=== PATIENT | female | born 1985 | race Caucasian/White ===

== ENCOUNTER 2016-11-22 09:18 | Inpatient (IN) | payer MEDICAID, OTHER ==
[~2016-11-22] VITALS: Ht 165.1 cm; Wt 72.4 kg
[2016-11-22] MEDS ORDERED: SOD CHLORIDE 0.9% 1,000 ML IV STA (09:44)
[2016-11-22] MEDS ORDERED: METOCLOPRAMIDE 10 MG INJ IV STA (09:44)
[2016-11-22] MEDS ORDERED: SOD CHLORIDE 0.9% 1,000 ML IV ONE ×2 (10:00→14:30)
[2016-11-22] MEDS ORDERED: DIPHENHYDRAMINE 50 MG INJ IV ONE (10:00)
[2016-11-22 10:15] LABS: ADD SCAN DIFF NO
[2016-11-22 10:19] LABS: ADD UMIC YES; URINE BILIRUBIN (Dip) 1+ (NEGATIVE); URINE BLOOD (Dip) TRACE (NEGATIVE); URINE COLOR YELLOW (YELLOW); URINE GLUCOSE (Dip) NEGATIVE (NEGATIVE); URINE KETONES (Dip) 3+ (NEGATIVE); URINE LEUKOCYTE ESTERASE (Dip) NEGATIVE (NEGATIVE); URINE NITRITE (Dip) NEGATIVE (NEGATIVE); URINE TOTAL PROTEIN (Dip) 2+ (NEGATIVE); URINE UROBILINOGEN (Dip) 1.0 E.U./dL (0.1-1.0)
--- NOTE | 2016-11-22 10:26 | ERD ---
ER Documentation Chief Complaint Date/Time DATE: 11/22/16 TIME: 10:24 Chief Complaint n/v 13 wks preg HPI 31-year-old female who is 2 approximately 13 weeks comes in with 3 days of nausea vomiting. Patient states that she has had multiple episodes of nonbloody nonbilious emesis associated with nausea. She states that she has had OB care at an outside facility, her last ultrasound was 2 weeks ago and she reports it has been normal. She has not had any pelvic pain or vaginal bleeding. She denies fevers, chills. ROS All systems reviewed and are negative except as per history of present illness. PMhx/Soc Medical and Surgical Hx: pt denies Medical Hx, pt denies Surgical Hx Hx Alcohol Use: No Hx Substance Use: No Hx Tobacco Use: No Smoking Status: Never smoker Physical Exam Vitals Vital Signs Date Time Temp Pulse Resp B/P Pulse Ox O2 Delivery O2 Flow Rate FiO2 11/22/16 14:21 65 18 108/66 99 Room Air 11/22/16 09:30 97.8 83 20 121/70 99 Physical Exam General: Well-developed, well-nourished. The patient appears in no acute distress. HEENT: Head is normocephalic, atraumatic. No scleral icterus. Pupils are equal , round, and reactive. Oral mucous membranes are moist. No pharyngeal erythema. Neck: Supple. Nontender. Lungs: Clear to auscultation. Normal air movement. Heart: Regular rate and rhythm. S1 and S2 are normal. No murmurs, gallops, or rubs. Abdomen: Soft, nontender, nondistended. Bowel sounds are normoactive. Extremities: No clubbing or cyanosis. Normal pulses. Moving extremities x 4. No weakness. Neurologic: Alert and oriented 3. No focal deficits. Skin: Normal turgor. No rash or lesions. Result Diagram: 11/22/16 0956 11/22/16 1500 Results 24 hrs Laboratory Tests Test 11/22/16 09:56 11/22/16 15:00 White Blood Count 25.910^3/ul Red Blood Count 4.4810^6/ul Hemoglobin 14.4g/dl Hematocrit 38.1% Mean Corpuscular Volume 85.0fl Mean Corpuscular Hemoglobin 32.1pg Mean Corpuscular Hemoglobin Concent 37.8g/dl Red Cell Distribution Width 12.1% Platelet Count 51348^3/UL Mean Platelet Volume 10.7fl Neutrophils % 88.0% Band Neutrophils % 1.0% Lymphocytes % 8.0% Monocytes % 3.0% Neutrophils # 22.810^3/ul Lymphocytes # 2.110^3/ul Monocytes # 0.810^3/ul Platelet Estimate PLT APPEAR ADEQUATE Urine Color YELLOW Urine Clarity HAZY Urine pH 6.0 Urine Specific [place] >=1.030 Urine Ketones 3+ Urine Nitrite NEGATIVE Urine Bilirubin 1+ Urine Ictotest NEGATIVE Urine Urobilinogen 1.0 E.U./dL Urine Leukocyte Esterase NEGATIVE Urine Microscopic RBC 0-2/HPF Urine Microscopic WBC 2-5/HPF Urine Squamous Epithelial Cells MODERATE Urine Bacteria MODERATE Urine Mucus MODERATE Urine Hemoglobin TRACE Urine Glucose NEGATIVE% Urine Total Protein 2+ Sodium Level 134mmol/L 135mmol/L Potassium Level 2.7mmol/L 3.2mmol/L Chloride Level 95mmol/L 100mmol/L Carbon Dioxide Level 20mmol/L 23mmol/L Anion Gap 22 15 Blood Urea Nitrogen 20mg/dl 14mg/dl Creatinine 0.69mg/dl 0.57mg/dl Glucose Level 130mg/dl 95mg/dl Calcium Level 10.0mg/dl 8.8mg/dl Total Bilirubin 0.8mg/dl Direct Bilirubin 0.00mg/dl Indirect Bilirubin 0.8mg/dl Aspartate Amino Transf (AST/SGOT) 27IU/L Alanine Aminotransferase (ALT/SGPT) 38IU/L Alkaline Phosphatase 73IU/L Total Protein 8.3g/dl Albumin 5.1g/dl Globulin 3.20g/dl Albumin/Globulin Ratio 1.59 Lipase 90U/L Beta HCG, Quantitative 746027.0mIU/ml Current Medications Medications (Trade) Dose Ordered Sig/Masood Route PRN Reason Start Time Stop Time Status Last Admin Dose Admin Sodium Chloride (NS) 1,000 ml @ 1,000 mls/hr Q1H STAT IV 11/22/16 09:44 11/22/16 10:43 DC 11/22/16 09:59 Metoclopramide HCl 10 mg 10 mg ONCE STAT IV 11/22/16 09:44 11/22/16 09:47 DC 11/22/16 09:59 Sodium Chloride (NS) 1,000 ml @ 1,000 mls/hr Q1H ONCE IV 11/22/16 10:00 11/22/16 10:59 DC 11/22/16 09:59 Diphenhydramine HCl (Benadryl) 25 mg ONCE ONCE IV 11/22/16 10:00 11/22/16 10:01 DC 11/22/16 09:59 Potassium Chloride 60 meq 60 meq ONCE STAT PO 11/22/16 11:31 11/22/16 11:33 DC 11/22/16 11:48 Potassium Chloride 20 meq/ Sodium Chloride 110 ml @ 55 mls/hr ONCE ONCE IVPB 11/22/16 12:00 11/22/16 13:59 DC 11/22/16 12:14 Magnesium Sulfate/ Dextrose (Magnesium Sulfate 1 Gm/D5W) 100 ml @ 100 mls/hr ONCE ONCE IVPB 11/22/16 12:00 11/22/16 12:59 DC 11/22/16 11:48 Ondansetron HCl (Zofran Inj) 4 mg ONCE STAT IV 11/22/16 11:59 11/22/16 12:00 DC 11/22/16 12:11 Ondansetron HCl 4 mg 4 mg ONCE STAT IV 11/22/16 14:09 11/22/16 14:10 DC 11/22/16 14:15 Sodium Chloride (NS) 1,000 ml @ 1,000 mls/hr Q1H ONCE IV 11/22/16 14:30 11/22/16 15:29 DC 11/22/16 14:15 Dextrose/Sodium Chloride (D5-1/2ns) 500 ml ONCE ONCE IV 11/22/16 15:30 11/22/16 15:31 DC PROCEDURE: US Abdomen (right upper quadrant). CLINICAL INDICATION: 31-year-old female. Right upper quadrant pain nausea and vomiting. TECHNIQUE: Multiple real-time longitudinal and transverse images of the right upper quadrant of the abdomen were acquired utilizing a curved array transducer. Images were reviewed on a high-resolution PACS workstation. COMPARISON: None FINDINGS: The liver is normal in size and echogenicity without focal mass or intrahepatic biliary dilatation. The gallbladder is normal. The common bile duct measures 5.9 mm in maximal dimension. The visualized portions of the pancreas are unremarkable with obscuration of the tail of the pancreas. No free fluid is identified. The right kidney measures 10.6 cm in length. There is no evidence of obstructive uropathy or urolithiasis. No renal masses seen. Visualized portions aorta and inferior vena cava are normal. IMPRESSION: 1. Unremarkable right upper quadrant ultrasound. RPTAT: QQ .Jarrod Krueger MD, MD Date Time Electronically viewed and signed by .Jarrod Krueger MD, on 11/22/2016 15:01 .L/ CC: JOSE ENRIQUE PIMENTEL PA-C PROCEDURE: US OB. CLINICAL INDICATION: Hyper emesis.. TECHNIQUE: Multiple sonographic images of the pelvis were obtained. Transabdominal and transvaginal views of the pelvis are available for review. The images were reviewed on a PACS workstation. COMPARISON: No prior studies are available for comparison. FINDINGS: The uterus measures 9.2 x 9.0 x 10.4 cm. Intrauterine is identified. The crown-rump length equals 6.5 cm which corresponds to 12 weeks 6 days gestational age by ultrasound criteria. Gestational sac size is 5.4 cm corresponding to 11 weeks 6 days. cardiac activity is 176 beats per minute. No subchorionic hemorrhage is identified. The adnexa are unremarkable. There is no free fluid. Right ovary measures 3.1 cm. Left ovary measures up to 0.6 cm. Ovaries are normal in size shape and flow. IMPRESSION: 1. Single viable intrauterine gestation of approximately 12-week 6 days by crown-rump length.. RPTAT: QQ .Jarrod Krueger MD, MD Date Time Electronically viewed and signed by .Jarrod Krueger MD, on 11/22/2016 10:44 Procedures/MDM ED course: Patient had an IV line established, blood and urine were obtained. She was given 2 L of normal saline IV, Benadryl 25 mg and Reglan 10 mg IV. She was feeling better at this time, labs showed hyperkalemia with a potassium of 2.7. She was given Zofran additionally 4 mg IV to control her nausea. She was given potassium 60 mEq by mouth, 20 mEq IV as well as magnesium 1 g IV. Patient was reassessed, she states that she was still feeling nauseous and she was given an additional Zofran 4 mg IV, as well as D5w 1/2 NS. At this point, she is dehydrated, was not able to tolerate oral potassium and continues to have emesis in the emergency room. I discussed this with my attending physician Dr Logan, who agrees. I called Dr. Olvera who is her OB who is believe that patient can safely be admitted to [facility]. 12-lead EKG(interpreted by supervising physician): Dr. Singletary Rate/Rhythm: Sinus bradycardia rate of 55 QRS, ST, T-waves: No changes consistent w/ acute ischemia, no intervals, no dysrhythmias, no ectopy Impression: No evidence of ischemia or arrhythmia MDM: 31-year-old female comes in with hyperemesis, subsequently developed hypokalemia and dehydration. In terms of the patient's , she has a single live intrauterine at 12 weeks and 6 days. She does not present with any pelvic pain, vaginal bleeding, she is hemodynamically stable. Patient at this time continues to have nausea, vomiting, she has hypokalemia on her lab work with a potassium of 2.7 and ketonuria. Patient was found to have leukocytosis of 27,000, likely due to dehydration and nausea, vomiting, she does not have any fever and suspicion for sepsis is low. Gallbladder ultrasound was also done and there is no evidence of gallstones or acute cholecystitis. Urine does not show evidence of infection. Suspicion for an infectious origin for this is low. She was not able to completely tolerate the oral potassium here and had 1 episode of vomiting once in the ED, therefore, I believe that the patient can further benefit from hospital admission and IV fluids and rehydration. I have notified her OB who is Dr. Olvera. We are awaiting admission at this time, hospitalist has been notified. I spoke with my attending physician Dr Logan, who also agrees the patient would benefit from hospital admission at this time. Patient was notified throughout the course of all her lab findings interventions , and medications. Departure Diagnosis: Primary Impression: Hyperemesis gravidarum Additional Impressions: Hypokalemia Dehydration Condition: JOSE ENRIQUE Carrion PA-C Nov 22, 2016 10:26
[2016-11-22 10:27] LABS: ICTOTEST NEGATIVE (NEGATIVE)
[2016-11-22 10:37] LABS: URINE RBCS 0-2 /HPF (0)
[2016-11-22 10:38] LABS: ALBUMIN 5.1 g/dl (3.3-4.9); ALBUMIN/GLOBULIN RATIO 1.59; BILIRUBIN,INDIRECT 0.8 mg/dl (0-1.1); BILIRUBIN,TOTAL 0.8 mg/dl (0.2-1.3); CREATININE 0.69 mg/dl (0.44-1.00); SQUAMOUS EPITHELIAL CELL,UR MODERATE; TOTAL PROTEIN 8.3 g/dl (6.1-8.1)
[2016-11-22 10:39] LABS: BACTERIA,URINE MODERATE; MUCUS,URINE MODERATE
--- NOTE | 2016-11-22 10:44 | RADRPT ---
PROCEDURE: US OB. CLINICAL INDICATION: Hyper emesis.. TECHNIQUE: Multiple sonographic images of the pelvis were obtained. Transabdominal and transvagin al views of the pelvis are available for review. The images were reviewed on a PACS workstation. COMPARISON: No prior studies are available for comparison. FINDINGS: The uterus measures 9.2 x 9.0 x 10.4 cm. Intrauterine is identified. The crown-rump yesenia th equals 6.5 cm which corresponds to 12 weeks 6 days gestational age by ultrasound criteria. Gesta tional sac size is 5.4 cm corresponding to 11 weeks 6 days. cardiac activity is 176 beats per minute. No subchorionic hemorrhage is identified. The adnexa are unremarkable. There is no free f luid. Right ovary measures 3.1 cm. Left ovary measures up to 0.6 cm. Ovaries are normal in size sh ape and flow. IMPRESSION: 1. Single viable intrauterine gestation of approximately 12-week 6 days by crown-rump length.. RPTAT: QQ .Jarrod Krueger MD, MD Date Time Electronically viewed and signed by .Jarrod Krueger MD, on 11/22/2016 10:44 .L/
[2016-11-22 11:12] LABS: POTASSIUM 2.7 mmol/L (3.5-5.1)
[2016-11-22] MEDS ORDERED: POTASSIUM CHLORIDE (SR) 20 MEQ TAB PO STA (11:31)
[2016-11-22 11:54] LABS: ABNORMAL IP MESSAGE 1; HEMATOCRIT 38.1 % (37.0-47.0); HEMOGLOBIN 14.4 g/dl (12.0-16.0); MEAN CORPUSCULAR HEMOGLOBIN 32.1 pg (29.0-33.0); MEAN PLATELET VOLUME 10.7 fl (7.4-10.4); PLATELET COUNT 388 10^3/UL (140-415); RED BLOOD COUNT 4.48 10^6/ul (4.20-5.40); RED CELL DISTRIBUTION WIDTH 12.1 % (11.5-14.5); WHITE BLOOD COUNT 25.9 10^3/ul (4.8-10.8)
[2016-11-22] MEDS ORDERED: ONDANSETRON 4 MG INJ IV STA ×3 (11:59→20:53)
[2016-11-22] MEDS ORDERED: POTASSIUM CHLORIDE 20 MEQ in SOD CHLORIDE 0.9% 100 ML IVPB ONE (12:00)
[2016-11-22] MEDS ORDERED: MAGNESIUM SULFATE 1 GM/D5W 100 ML IVPB ONE (12:00)
[2016-11-22 12:45] LABS: MEAN CORPUSCULAR HGB CONC 37.8 g/dl (32.0-37.0)
[2016-11-22 13:32] LABS: LYMPHOCYTES # 2.1 10^3/ul (0.8-2.9); MONOCYTE # 0.8 10^3/ul (0.3-0.9); NEUTROPHIL # 22.8 10^3/ul (1.6-7.5)
[2016-11-22 13:33] LABS: PLATELET ESTIMATE PLT APPEAR ADEQUATE
--- NOTE | 2016-11-22 15:01 | RADRPT ---
PROCEDURE: US Abdomen (right upper quadrant). CLINICAL INDICATION: 31-year-old female. Right upper quadrant pain nausea and vomiting. TECHNIQUE: Multiple real-time longitudinal and transverse images of the right upper quadrant of th e abdomen were acquired utilizing a curved array transducer. Images were reviewed on a high-resoluti on PACS workstation. COMPARISON: None FINDINGS: The liver is normal in size and echogenicity without focal mass or intrahepatic biliary dilatation. The gallbladder is normal. The common bile duct measures 5.9 mm in maximal dimension. The visuali zed portions of the pancreas are unremarkable with obscuration of the tail of the pancreas. No free fluid is identified. The right kidney measures 10.6 cm in length. There is no evidence of obstructive uropathy or urolith iasis. No renal masses seen. Visualized portions aorta and inferior vena cava are normal. IMPRESSION: 1. Unremarkable right upper quadrant ultrasound. RPTAT: QQ .Jarrod Krueger MD, MD Date Time Electronically viewed and signed by .Jarrod Krueger MD, on 11/22/2016 15:01 .L/
[2016-11-22] MEDS ORDERED: DEXTROSE 5%-0.45% NACL 500 ML BAG IV ONE (15:30)
[2016-11-22 15:37] LABS: CALCIUM 8.8 mg/dl (8.4-10.2); CREATININE 0.57 mg/dl (0.44-1.00); POTASSIUM 3.2 mmol/L (3.5-5.1)
--- NOTE | 2016-11-22 16:18 | EN ---
Date/Time of Note Date/Time of Note DATE: 11/22/16 TIME: 16:17 ER Progress Note Patient to be admitted to the [facility]LE SET[facility]PRENT[facility] service. Dr. Cazares talked to Dr. Morrison who will admit. Please see PA documentation. JORI CERVANTES MD Nov 22, 2016 16:18
[2016-11-22] MEDS ORDERED: ONDANSETRON 4 MG INJ IV PRN (16:30)
[2016-11-22] MEDS ORDERED: ACETAMINOPHEN 325 MG TAB PO PRN (16:30)
[2016-11-22 18:43] VITALS: TEMP 98
[2016-11-22 19:45] VITALS: BP 111/69; PULSE 73; RESP 20
[2016-11-22 21:02] VITALS: Ht 165.1 cm; Wt 72.4 kg
[2016-11-22] MEDS ORDERED: DEXTROSE 5%-LR 1,000 ML IV SCH (23:00)
[2016-11-22] MEDS ORDERED: PYRIDOXINE 100 MG INJ IM ONE (23:30)
[2016-11-22] MEDS ORDERED: POTASSIUM CHLORIDE IV SCH (23:30)
[2016-11-22] MEDS ORDERED: DIPHENHYDRAMINE 50 MG INJ IM ONE (23:30)
[2016-11-22] MEDS ORDERED: [UNRECOGNIZED DRUG - OTHER] IV SCH (23:30)
[2016-11-22] MEDS ORDERED: DEXTROSE 5% IV SCH (23:30)
--- NOTE | 2016-11-22 23:57 | HP ---
Date/Time of Note Date/Time of Note DATE: 11/22/16 TIME: 23:49 OB - History Hx of Present Free Text/Dictation 31 y.o. A1 with an IUP at 13 weeks with severe hyperemesis since early and this is her first admission for same.Pt was in the ER x 12 hours attempting hydration and antiemetics but was not able to be discharged so was admitted by Dr Olvera. Pt reports she has been taking Diclegis for the last week 2 qHS and then 1 in AM and one in the afternoon but that it hasn't helped. No bleeding. PMHx: none. PSHx: Knee surgery. Pilonidal cyst removed from her tailbone. NKDA. : 2 Para: 0 Spontaneous : 1 Care: Good Care Ultrasounds: Other (US in the ER today c/w 12w 6d) Obstetrical Complications: Hyperemesis Past Family/Social History * Past Medical, Surgical, Family and Obstetric Histories reviewed with pt as her records are not available. Blood Type: Unknown Rubella: unknown RPR/VDRL: Unknown GBS Status: Unknown HBsAG: Unknown OB Admission Exam Vital Signs Vital Signs Vital Signs Date Time Temp Pulse Resp B/P Pulse Ox O2 Delivery O2 Flow Rate FiO2 11/22/16 18:43 98.0 80 18 119/70 100 Room Air Physical Exam HEENT: WNL Heart: Rhythm Normal Lungs: Clear Abdomen: WNL Extremities: Normal Reflexes: Normal Heart Rate: 140's Last 72 hours Lab Results CBC & BMP 11/22/16 09:56 11/22/16 15:00 Liver Function Test 11/22/16 09:56 Alanine Aminotransferase (ALT/SGPT) 38 Albumin 5.1 H Alkaline Phosphatase 73 Aspartate Amino Transf (AST/SGOT) 27 Direct Bilirubin 0.00 Total Protein 8.3 H Magnesium Level Test 11/22/16 15:00 Magnesium Level 2.0 OB Assessment/Plan Other Assessment: Hyperemesis gravidarum. Other plan: IV hydration with continued potassium replacement. Benadryl 50mg IV to help with the vomiting and to help the pt sleep as she is very tired. Zofran 4 mg IV q 6 hours. Clear liquids only, for now. Pyridoxine 100 IM x 1. BENJI RODRÍGUEZ MD Nov 22, 2016 23:57
[2016-11-23] MEDS ORDERED: DIPHENHYDRAMINE 50 MG INJ IV ONE
[2016-11-23] MEDS: ONDANSETRON INJ 8 MG in SOD CHLORIDE 0.9% 50 ML IV PRN ×3 (00:48→22:42)
[2016-11-23] MEDS: POTASSIUM CHLORIDE IV SCH ×4 (00:54→20:12)
[2016-11-23] MEDS: [UNRECOGNIZED DRUG - OTHER] IV SCH ×4 (00:54→20:12)
[2016-11-23] MEDS: DEXTROSE 5% IV SCH ×4 (00:54→20:12)
[2016-11-23] MEDS ORDERED: VITAMIN A & D 5 GM OINT PACKET TOP ONE (00:56)
[2016-11-23] MEDS: ONDANSETRON 4 MG INJ IV PRN ×3 (03:00→17:44)
[2016-11-23 06:40] LABS: CALCIUM 8.4 mg/dl (8.4-10.2); CREATININE 0.55 mg/dl (0.44-1.00)
[2016-11-23 08:07] VITALS: BP 94/50; RESP 18
[2016-11-23] MEDS: PYRIDOXINE 50 MG TAB PO SCH (10:01)
--- NOTE | 2016-11-23 12:47 | QN ---
Documentation Comment patient seen and evaluated complains of n/v with epigastric pain vs stable afebrile abd soft , mild epigastric tenderness extremity no edema no calft a/ iup at 13 wks hyperemesis gravidarum p/ k supplement pepcid npo continue antiemetic ILDA BROWN MD Nov 23, 2016 12:47
[2016-11-23] MEDS: FAMOTIDINE 20 MG INJ IV SCH ×2 (12:55→20:05)
[2016-11-23] MEDS ORDERED: ACETAMINOPHEN 325 MG TAB PO PRN (13:00)
[2016-11-23 19:50] VITALS: BP 119/59; RESP 18
[2016-11-24] MEDS: ONDANSETRON 4 MG INJ IV PRN ×2 (04:14→11:09)
[2016-11-24] MEDS: [UNRECOGNIZED DRUG - OTHER] IV SCH ×2 (06:01→18:41)
[2016-11-24] MEDS: POTASSIUM CHLORIDE IV SCH ×2 (06:01→18:41)
[2016-11-24] MEDS: DEXTROSE 5% IV SCH ×2 (06:01→18:41)
[2016-11-24 08:02] VITALS: BP 115/69; RESP 16
[2016-11-24] MEDS: PYRIDOXINE 50 MG TAB PO SCH (09:39)
[2016-11-24] MEDS: FAMOTIDINE 20 MG INJ IV SCH ×2 (09:39→20:24)
[2016-11-24] MEDS: ONDANSETRON INJ 8 MG in SOD CHLORIDE 0.9% 50 ML IV PRN ×2 (13:13→22:26)
--- NOTE | 2016-11-24 13:55 | QN ---
Documentation Comment patient seen and evaluated complains of n/v with vs stable afebrile abd soft , nt, no epigastric tenderss extremity no edema no calft a/ iup at 13 wks hyperemesis gravidarum continue to have n/v p/ order cbc, cmp, amylase, lipase nutrition consult ordered ILDA BROWN MD Nov 24, 2016 13:55
[2016-11-24 15:01] LABS: ADD SCAN DIFF NO
[2016-11-24 15:02] LABS: BASOPHILS % 0.2 % (0.0-2.0); EOSINOPHILS % 0.3 % (0.0-7.0); HEMATOCRIT 32.9 % (37.0-47.0); HEMOGLOBIN 11.9 g/dl (12.0-16.0); LYMPHOCYTES # 2.2 10^3/ul (0.8-2.9); LYMPHOCYTES % 14.9 % (15.0-51.0); MEAN CORPUSCULAR HEMOGLOBIN 31.9 pg (29.0-33.0); MEAN CORPUSCULAR HGB CONC 36.2 g/dl (32.0-37.0); MEAN CORPUSCULAR VOLUME 88.2 fl (82.0-101.0); MEAN PLATELET VOLUME 10.3 fl (7.4-10.4); MONOCYTE # 0.9 10^3/ul (0.3-0.9); MONOCYTES % 5.8 % (0.0-11.0); NEUTROPHIL # 11.6 10^3/ul (1.6-7.5); NEUTROPHILS % 78.1 % (39.0-77.0); PLATELET COUNT 269 10^3/UL (140-415); RED BLOOD COUNT 3.73 10^6/ul (4.20-5.40); RED CELL DISTRIBUTION WIDTH 12.2 % (11.5-14.5); WHITE BLOOD COUNT 14.9 10^3/ul (4.8-10.8)
[2016-11-24 15:24] LABS: ALBUMIN 4.1 g/dl (3.3-4.9); ALBUMIN/GLOBULIN RATIO 1.7; BILIRUBIN,INDIRECT 0.5 mg/dl (0-1.1); BILIRUBIN,TOTAL 0.5 mg/dl (0.2-1.3); CALCIUM 8.8 mg/dl (8.4-10.2); CREATININE 0.51 mg/dl (0.44-1.00); POTASSIUM 3.8 mmol/L (3.5-5.1); TOTAL PROTEIN 6.5 g/dl (6.1-8.1)
[2016-11-24 19:43] VITALS: BP 109/59; RESP 20
[2016-11-25] MEDS: ONDANSETRON 4 MG INJ IV PRN (02:50)
[2016-11-25] MEDS: POTASSIUM CHLORIDE IV SCH ×3 (03:08→23:12)
[2016-11-25] MEDS: DEXTROSE 5% IV SCH ×3 (03:08→23:12)
[2016-11-25] MEDS: [UNRECOGNIZED DRUG - OTHER] IV SCH ×3 (03:08→23:12)
[2016-11-25 08:00] VITALS: BP 110/67; RESP 18
[2016-11-25] MEDS: FAMOTIDINE 20 MG INJ IV SCH ×2 (09:01→21:32)
[2016-11-25] MEDS: PYRIDOXINE 50 MG TAB PO SCH (09:01)
--- NOTE | 2016-11-25 12:59 | QN ---
Documentation Comment patient seen and evaluated decrease nausea no vomiting vs stable afebrile abd soft , nt, no epigastric tenderness extremity no edema no calf a/ iup at 13 wks improving symptoms hyperemesis gravidarum p/ advance to clear liquids ILDA BROWN MD Nov 25, 2016 12:59
[2016-11-25 20:51] VITALS: BP 101/57; RESP 18
[2016-11-26 07:45] VITALS: BP 104/64; RESP 17
[2016-11-26] MEDS: FAMOTIDINE 20 MG INJ IV SCH ×2 (08:43→21:16)
[2016-11-26] MEDS: DEXTROSE 5% IV SCH ×3 (08:43→18:20)
[2016-11-26] MEDS: [UNRECOGNIZED DRUG - OTHER] IV SCH ×3 (08:43→18:20)
[2016-11-26] MEDS: POTASSIUM CHLORIDE IV SCH ×3 (08:43→18:20)
[2016-11-26] MEDS: PYRIDOXINE 50 MG TAB PO SCH (08:43)
--- NOTE | 2016-11-26 13:16 | QN ---
Documentation Comment patient seen and evaluated no n/v vs stable afebrile abd soft , nt, no epigastric tenderness extremity no edema no calf a/ iup at 13 wks improving symptoms hyperemesis gravidarum tolerating clear diet p/ advance diet as tolerated consider d/c tomorrow if toleration diet ILDA BROWN MD Nov 26, 2016 13:16
[2016-11-26] MEDS: ONDANSETRON 4 MG INJ IV PRN (19:19)
[2016-11-26 20:24] VITALS: BP 118/56; RESP 18
[2016-11-27] MEDS: ONDANSETRON INJ 8 MG in SOD CHLORIDE 0.9% 50 ML IV PRN (00:01)
[2016-11-27] MEDS: POTASSIUM CHLORIDE IV SCH ×4 (02:34→21:47)
[2016-11-27] MEDS: [UNRECOGNIZED DRUG - OTHER] IV SCH ×4 (02:34→21:47)
[2016-11-27] MEDS: DEXTROSE 5% IV SCH ×4 (02:34→21:47)
--- NOTE | 2016-11-27 05:31 | QN ---
Documentation Comment patient seen and evaluated patient was unable to tolerate solid last night vs stable afebrile abd soft , nt, no epigastric tenderness extremity no edema no calf a/ iup at 13 wks improving symptoms hyperemesis gravidarum no tolerating solids p/f/u with medicine consult f/u with countersinker labs ordered ILDA BROWN MD Nov 27, 2016 05:31
[2016-11-27 07:55] VITALS: BP 98/56; RESP 18
[2016-11-27] MEDS: PYRIDOXINE 50 MG TAB PO SCH (09:32)
[2016-11-27] MEDS: FAMOTIDINE 20 MG INJ IV SCH ×2 (09:36→20:41)
[2016-11-27 10:08] LABS: ADD SCAN DIFF NO
[2016-11-27 10:15] LABS: BASOPHILS % 0.3 % (0.0-2.0); EOSINOPHILS # 0.1 10^3/ul (0.0-0.5); HEMATOCRIT 38.8 % (37.0-47.0); HEMOGLOBIN 13.4 g/dl (12.0-16.0); LYMPHOCYTES # 1.9 10^3/ul (0.8-2.9); LYMPHOCYTES % 17.5 % (15.0-51.0); MEAN CORPUSCULAR HEMOGLOBIN 31.1 pg (29.0-33.0); MEAN CORPUSCULAR HGB CONC 34.5 g/dl (32.0-37.0); MEAN PLATELET VOLUME 10.6 fl (7.4-10.4); MONOCYTE # 0.7 10^3/ul (0.3-0.9); MONOCYTES % 6.5 % (0.0-11.0); NEUTROPHIL # 8.2 10^3/ul (1.6-7.5); NEUTROPHILS % 74.2 % (39.0-77.0); PLATELET COUNT 296 10^3/UL (140-415); RED BLOOD COUNT 4.31 10^6/ul (4.20-5.40); RED CELL DISTRIBUTION WIDTH 12.4 % (11.5-14.5); WHITE BLOOD COUNT 11.1 10^3/ul (4.8-10.8)
[2016-11-27 10:52] LABS: ALBUMIN/GLOBULIN RATIO 1.42; BILIRUBIN,INDIRECT 0.4 mg/dl (0-1.1); BILIRUBIN,TOTAL 0.4 mg/dl (0.2-1.3); CALCIUM 9.4 mg/dl (8.4-10.2); CREATININE 0.61 mg/dl (0.44-1.00); POTASSIUM 4.2 mmol/L (3.5-5.1); TOTAL PROTEIN 6.8 g/dl (6.1-8.1)
--- NOTE | 2016-11-27 14:27 | CONS ---
Date/Time of Note Date/Time of Note DATE: 11/27/16 TIME: 14:24 Assessment/Plan Assessment/Plan Chief Complaint/Hosp Course Impression and plan 1. Hyperemesis gravidarum. Continue on Zofran. Reglan was added. Patient is report less nausea at this time. Continue regimen. Monitor for clinical improvement. Of note patient only able to tolerate 15-20% of diet. 2. 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 Continue recommendations. 3. Transaminitis. Etiology unknown at this time. Follow-up on liver function tests. 4. Leukocytosis likely reactive. Afebrile at present. Urinalysis negative. Will provide with antipyretics as needed. Discussed plan of care with Dr. Phililp Consult time greater than 30 minutes Problems: Consultation Date/Type/Reason Admit Date/Time Nov 22, 2016 at 16:15 Hx of Present Illness This is a 31-year-old female with no significant past medical history who is currently 13 weeks and 3 days who did come to [facility] due to reports of severe nausea and vomiting. According to the patient she was initially admitted on November 22, 2016 but started to experience extreme nausea and vomiting 3 days prior to admission. She did report it was nonbilious nonbloody and that she was unable to tolerate any kind of oral intake. She did try with liquids but still was reported to be nauseous. She was admitted with diagnosis of hyperemesis gravidarum. Of note on examination patient was initially with leukocytosis likely reactive with white count of 25.9 which has now down trended to 11.1. Her urinalysis was negative for leukocyte esterase and urine nitrite test. Patient also remained afebrile. she was noted with some mild transaminitis etiology unknown at this time.. She denies any abdominal pain at this time. She denies any chest pain or shortness of breath or any reports of fever or prior illness preceding her nausea and vomiting. She does report that her nausea since admission has been better controlled however is only able to tolerate 15-20% of her diet. We will evaluate her for the aformentiond issues 12 point review of systems obtained and entirely negative except that mentioned in the history of present illness Past Medical History Medical History: no pertinent history Family History Significant Family History: no pertinent family hx Social History Alcohol Use: none Smoking Status: Never smoker Exam/Review of Systems Vital Signs Vitals Vital Signs Date Time Temp Pulse Resp B/P Pulse Ox O2 Delivery O2 Flow Rate FiO2 11/27/16 07:55 98.8 76 18 98/56 96 Intake and Output 11/26/16 11/26/16 11/27/16 15:00 23:00 07:00 Intake Total 600 ml 2129 ml Balance 600 ml 2129 ml Exam Constitutional: alert, oriented Psych: nl mood/affect Head: normocephalic Eyes: nl conjunctiva Neck: supple, No jvd Respiratory: clear to auscultation, normal air movement Cardiovascular: regular rate and rhythm Gastrointestinal: non-tender, soft Musculoskeletal: nl extremities to inspection, nl gait and stance Extremities: calf tenderness, normal pulses Neurological: COTTON BALL MACHINE TENDER II-XII intact, nl mental status, nl speech Skin: nl turgor Results Result Diagram: 11/27/16 0900 11/27/16 0900 Results 24 hrs Laboratory Tests Test 11/27/16 09:00 White Blood Count 11.1 #H Red Blood Count 4.31 Hemoglobin 13.4 Hematocrit 38.8 Mean Corpuscular Volume 90.0 Mean Corpuscular Hemoglobin 31.1 Mean Corpuscular Hemoglobin Concent 34.5 Red Cell Distribution Width 12.4 Platelet Count 296 Mean Platelet Volume 10.6 H Neutrophils % 74.2 Lymphocytes % 17.5 Monocytes % 6.5 Eosinophils % 1.0 Basophils % 0.3 Nucleated Red Blood Cells % 0.0 Neutrophils # 8.2 H Lymphocytes # 1.9 Monocytes # 0.7 Eosinophils # 0.1 Basophils # 0.0 Nucleated Red Blood Cells # 0.0 Sodium Level 135 Potassium Level 4.2 Chloride Level 101 Carbon Dioxide Level 23 Anion Gap 15 Blood Urea Nitrogen 4 L Creatinine 0.61 Glucose Level 97 Calcium Level 9.4 Total Bilirubin 0.4 Direct Bilirubin 0.00 Indirect Bilirubin 0.4 Aspartate Amino Transf (AST/SGOT) 61 H Alanine Aminotransferase (ALT/SGPT) 161 H Alkaline Phosphatase 61 Total Protein 6.8 Albumin 4.0 Globulin 2.80 Albumin/Globulin Ratio 1.42 Medications Medications Current Medications Ondansetron HCl 4 mg 4 mg Q6H PRN IV NAUSEA AND/OR VOMITING Last administered on 11/26/16t 19:19; Admin Dose 4 MG; Start 11/22/16 at 21:00 Ondansetron HCl 8 mg/Sodium Chloride 54 ml @ 216 mls/hr Q6H PRN IV NAUSEA AND/ OR VOMITING Last administered on 11/27/16 00:01; Admin Dose 216 MLS/HR; Start at 23:00 Potassium Chloride/Dextrose/ Lactated Ringer's (KCl/D5-Lr) 1,020 ml @ 125 mls/ hr Q8H10M IV Last administered on 11/27/16 12:28; Admin Dose 125 MLS/HR; Start 11/23/16 at 00:30 Pyridoxine HCl (Vitamin B6) 25 mg DAILY PO Last administered on 11/27/16 09:32 ; Admin Dose 25 MG; Start 11/23/16 at 09:00 Famotidine (Pepcid Iv) 20 mg BID IV Last administered on 11/27/16 09:36; Admin Dose 20 MG; Start 11/23/16 at 12:30 Acetaminophen (Tylenol Tab) 325 mg Q6H PRN PO PAIN AND OR ELEVATED TEMP Last administered on 11/24/16 22:14; Admin Dose 325 MG; Start 11/23/16 at 13:00 Metoclopramide HCl (Reglan) 5 mg Q4H PRN IV nausea; Start 11/27/16 at 12:30 RIKA SCALES Nov 27, 2016 14:27
[2016-11-27] MEDS: METOCLOPRAMIDE 10 MG INJ IV PRN (17:52)
[2016-11-27 20:00] VITALS: BP 115/64; PULSE 71; RESP 18
[2016-11-28] MEDS: DEXTROSE 5% IV SCH ×4 (06:15→22:57)
[2016-11-28] MEDS: POTASSIUM CHLORIDE IV SCH ×4 (06:15→22:57)
[2016-11-28] MEDS: [UNRECOGNIZED DRUG - OTHER] IV SCH ×4 (06:15→22:57)
[2016-11-28] MEDS: METOCLOPRAMIDE 10 MG INJ IV PRN ×3 (07:36→20:10)
[2016-11-28 08:12] VITALS: BP 104/59; RESP 18
[2016-11-28] MEDS: PYRIDOXINE 50 MG TAB PO SCH (08:29)
[2016-11-28] MEDS: FAMOTIDINE 20 MG INJ IV SCH ×2 (08:29→20:09)
--- NOTE | 2016-11-28 16:26 | PN ---
Date/Time of Note Date/Time of Note DATE: 11/28/16 TIME: 16:23 Assessment/Plan VTE Prophylaxis VTE Prophylaxis Intervention: SCD's Lines/Catheters IV Catheter Type (from Nrsg): Peripheral IV Assessment/Plan Chief Complaint/Hosp Course Impression and plan 1. Hyperemesis gravidarum. Continue on Zofran. . Patient is report less nausea at this time. Continue regimen. Monitor for clinical improvement. reports good response from reglan and able to tolerate 50% of food 2. 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 Continue recommendations. 3. Transaminitis. stable. 4. Leukocytosis likely reactive. Afebrile at present. Urinalysis negative. Will provide with antipyretics as needed. stable Dispo/Plan: continue on reglan. d/c planning . encourage oral intake. anticipate d/c within the next 24-48 hrs Discussed plan of care with Dr. Phillip Problems: Subjective 24 Hr Interval Summary Free Text/Dictation reports less nausea, and good response with reglan Exam/Review of Systems Vital Signs Vitals Vital Signs Date Time Temp Pulse Resp B/P Pulse Ox O2 Delivery O2 Flow Rate FiO2 11/28/16 08:12 97.7 65 18 104/59 97 11/27/16 20:00 Room Air Intake and Output 11/27/16 11/27/16 11/28/16 14:59 22:59 06:59 Intake Total 645 ml 1960 ml 1380 ml Balance 645 ml 1960 ml 1380 ml Exam Constitutional: alert, oriented Psych: no complaints Head: normocephalic Neck: supple, No jvd Respiratory: clear to auscultation, normal air movement Cardiovascular: regular rate and rhythm Gastrointestinal: non-tender, soft Musculoskeletal: nl extremities to inspection Extremities: normal pulses Neurological: SENIOR SOFTWARE ENGINEERING MANAGER II-XII intact, nl mental status, nl speech Skin: nl turgor Results Result Diagram: 11/27/16 0911/27/16 0900 Medications Medications Current Medications Ondansetron HCl 4 mg 4 mg Q6H PRN IV NAUSEA AND/OR VOMITING Last administered on 11/26/16 19:19; Admin Dose 4 MG; Start 11/22/16 at 21:00 Ondansetron HCl 8 mg/Sodium Chloride 54 ml @ 216 mls/hr Q6H PRN IV NAUSEA AND/ OR VOMITING Last administered on 11/27/16 00:01; Admin Dose 216 MLS/HR; Start at 23:00 Potassium Chloride/Dextrose/ Lactated Ringer's (KCl/D5-Lr) 1,020 ml @ 125 mls/ hr Q8H10M IV Last administered on 11/28/16 15:02; Admin Dose 125 MLS/HR; Start 11/23/16 at 00:30 Pyridoxine HCl (Vitamin B6) 25 mg DAILY PO Last administered on 11/28/16 08:29 ; Admin Dose 25 MG; Start 11/23/16 at 09:00 Famotidine (Pepcid Iv) 20 mg BID IV Last administered on 11/28/16 08:29; Admin Dose 20 MG; Start 11/23/16 at 12:30 Acetaminophen (Tylenol Tab) 325 mg Q6H PRN PO PAIN AND OR ELEVATED TEMP Last administered on 11/24/16 22:14; Admin Dose 325 MG; Start 11/23/16 at 13:00 Metoclopramide HCl (Reglan) 5 mg Q4H PRN IV nausea Last administered on 16:08; Admin Dose 5 MG; Start 11/27/16 at 12:30 RIKA SCALES Nov 28, 2016 16:26
--- NOTE | 2016-11-28 16:27 | PN ---
Date/Time of Note Date/Time of Note DATE: 11/28/16 TIME: 16:24 OB Subjective Subjective Subjective Patient is a 13+ weeks of gestation with hyperemesis of OB Objective Objective Objective Patient reports that she is tolerating regular diet, no nausea vomiting at this time PROCEDURE: US OB. CLINICAL INDICATION: Hyper emesis.. TECHNIQUE: Multiple sonographic images of the pelvis were obtained. Transabdominal and transvaginal views of the pelvis are available for review. The images were reviewed on a PACS workstation. COMPARISON: No prior studies are available for comparison. FINDINGS: The uterus measures 9.2 x 9.0 x 10.4 cm. Intrauterine is identified. The crown-rump length equals 6.5 cm which corresponds to 12 weeks 6 days gestational age by ultrasound criteria. Gestational sac size is 5.4 cm corresponding to 11 weeks 6 days. cardiac activity is 176 beats per minute. No subchorionic hemorrhage is identified. The adnexa are unremarkable. There is no free fluid. Right ovary measures 3.1 cm. Left ovary measures up to 0.6 cm. Ovaries are normal in size shape and flow. IMPRESSION: 1. Single viable intrauterine gestation of approximately 12-week 6 days by crown-rump length.. RPTAT: QQ .Jarrod Krueger MD, MD Date Time Electronically viewed and signed by .Jarrod Krueger MD, on 11/22/2016 10:44 .L/ CC: JOSE ENRIQUE PIMENTEL PA-C HEENT: WNL Heart: Rhythm Normal Lungs: Clear, Equal Abdomen: WNL Extremities: Normal Reflexes: Normal OB Assessment/Plan Other Assessment: 13+ weeks of gestation with hyperemesis Other plan: Continue with present management SHERLY COX MD Nov 28, 2016 16:27
[2016-11-28] MEDS: ONDANSETRON 4 MG INJ IV PRN (18:39)
[2016-11-28 21:39] VITALS: BP 103/59; RESP 18
[2016-11-29 05:19] LABS: ADD SCAN DIFF NO; HAAIG REFLEX REFLEX FILED
[2016-11-29 05:23] LABS: BASOPHILS % 0.3 % (0.0-2.0); EOSINOPHILS # 0.2 10^3/ul (0.0-0.5); EOSINOPHILS % 1.3 % (0.0-7.0); HEMATOCRIT 36.8 % (37.0-47.0); HEMOGLOBIN 12.7 g/dl (12.0-16.0); LYMPHOCYTES # 2.3 10^3/ul (0.8-2.9); LYMPHOCYTES % 19.5 % (15.0-51.0); MEAN CORPUSCULAR HEMOGLOBIN 31.4 pg (29.0-33.0); MEAN CORPUSCULAR HGB CONC 34.5 g/dl (32.0-37.0); MEAN CORPUSCULAR VOLUME 91.1 fl (82.0-101.0); MONOCYTE # 0.9 10^3/ul (0.3-0.9); MONOCYTES % 7.3 % (0.0-11.0); NEUTROPHIL # 8.4 10^3/ul (1.6-7.5); NEUTROPHILS % 71.1 % (39.0-77.0); PLATELET COUNT 298 10^3/UL (140-415); RED BLOOD COUNT 4.04 10^6/ul (4.20-5.40); RED CELL DISTRIBUTION WIDTH 12.2 % (11.5-14.5); WHITE BLOOD COUNT 11.9 10^3/ul (4.8-10.8)
[2016-11-29 06:01] LABS: ALBUMIN 3.8 g/dl (3.3-4.9); ALBUMIN/GLOBULIN RATIO 1.52; BILIRUBIN,INDIRECT 0.3 mg/dl (0-1.1); BILIRUBIN,TOTAL 0.3 mg/dl (0.2-1.3); CALCIUM 9.2 mg/dl (8.4-10.2); CREATININE 0.61 mg/dl (0.44-1.00); POTASSIUM 4.1 mmol/L (3.5-5.1); TOTAL PROTEIN 6.3 g/dl (6.1-8.1)
[2016-11-29] MEDS: DEXTROSE 5% IV SCH ×3 (06:40→23:44)
[2016-11-29] MEDS: POTASSIUM CHLORIDE IV SCH ×3 (06:40→23:44)
[2016-11-29] MEDS: [UNRECOGNIZED DRUG - OTHER] IV SCH ×3 (06:40→23:44)
[2016-11-29 06:46] LABS: HEPATITIS B CORE ANTIBODY NEGATIVE (NEGATIVE)
[2016-11-29 08:00] VITALS: BP 110/65; PULSE 75; RESP 16
[2016-11-29] MEDS: METOCLOPRAMIDE 10 MG INJ IV PRN ×2 (08:14→12:10)
[2016-11-29] MEDS: PYRIDOXINE 50 MG TAB PO SCH (08:17)
[2016-11-29] MEDS: FAMOTIDINE 20 MG INJ IV SCH (08:17)
--- NOTE | 2016-11-29 13:58 | PN ---
Date/Time of Note Date/Time of Note DATE: 11/29/16 TIME: 13:57 Assessment/Plan VTE Prophylaxis VTE Prophylaxis Intervention: ambulation Lines/Catheters IV Catheter Type (from Nrs): Peripheral IV Assessment/Plan Chief Complaint/Hosp Course Impression and plan 1. Hyperemesis gravidarum. Continue on Zofran. . Patient is report less nausea at this time. Continue regimen. Monitor for clinical improvement. reglan switched from IV to oral 2. Current . [employer] FINDER following. Continue recommendations. 3. Transaminitis. ballbladder ultrasound unremarkable. LFT improving. will monitor for now 4. Leukocytosis likely reactive. Afebrile at present. Urinalysis negative. Will provide with antipyretics as needed. stable Dispo/Plan: continue on reglan. less nausea today. LFT improving. d/c planning Discussed plan of care with Dr. Phillip Problems: Subjective 24 Hr Interval Summary Free Text/Dictation reports one episode of vomiting yesterday. reports improved. Exam/Review of Systems Vital Signs Vitals Vital Signs Date Time Temp Pulse Resp B/P Pulse Ox O2 Delivery O2 Flow Rate FiO2 11/28/16 21:39 98.0 70 18 103/59 99 11/27/16 20:00 Room Air Intake and Output 11/28/16 11/28/16 11/29/16 15:00 23:00 07:00 Intake Total 1000 ml 1720 ml 1320 ml Output Total 300 ml Balance 1000 ml 1420 ml 1320 ml Exam Constitutional: alert, oriented Psych: nl mood/affect Head: normocephalic Eyes: nl conjunctiva Respiratory: clear to auscultation, normal air movement Cardiovascular: regular rate and rhythm Gastrointestinal: non-tender, soft Musculoskeletal: nl extremities to inspection Neurological: PRODUCTION WELDER II-XII intact, nl mental status, nl speech Skin: nl turgor Results Result Diagram: 11/29/16 0430 11/29/16 0430 Results 24 hrs Laboratory Tests Test 11/29/16 04:30 White Blood Count 11.9 H Red Blood Count 4.04 L Hemoglobin 12.7 Hematocrit 36.8 L Mean Corpuscular Volume 91.1 Mean Corpuscular Hemoglobin 31.4 Mean Corpuscular Hemoglobin Concent 34.5 Red Cell Distribution Width 12.2 Platelet Count 298 Mean Platelet Volume 10.0 Neutrophils % 71.1 Lymphocytes % 19.5 Monocytes % 7.3 Eosinophils % 1.3 Basophils % 0.3 Nucleated Red Blood Cells % 0.0 Neutrophils # 8.4 H Lymphocytes # 2.3 Monocytes # 0.9 Eosinophils # 0.2 Basophils # 0.0 Nucleated Red Blood Cells # 0.0 Sodium Level 136 Potassium Level 4.1 Chloride Level 104 Carbon Dioxide Level 27 Anion Gap 9 # Blood Urea Nitrogen 4 L Creatinine 0.61 Glucose Level 92 Calcium Level 9.2 Total Bilirubin 0.3 Direct Bilirubin 0.00 Indirect Bilirubin 0.3 Aspartate Amino Transf (AST/SGOT) 31 Alanine Aminotransferase (ALT/SGPT) 108 H Alkaline Phosphatase 54 Total Protein 6.3 Albumin 3.8 Globulin 2.50 Albumin/Globulin Ratio 1.52 Hepatitis B Surface Antigen NEGATIVE Hepatitis B Core Total Antibody NEGATIVE Hepatitis C Antibody NEGATIVE Medications Medications Current Medications Ondansetron HCl 4 mg 4 mg Q6H PRN IV NAUSEA AND/OR VOMITING Last administered on 11/28/16 18:39; Admin Dose 4 MG; Start 11/22/16 at 21:00 Ondansetron HCl 8 mg/Sodium Chloride 54 ml @ 216 mls/hr Q6H PRN IV NAUSEA AND/ OR VOMITING Last administered on 11/27/16 00:01; Admin Dose 216 MLS/HR; Start at 23:00 Potassium Chloride/Dextrose/ Lactated Ringer's (KCl/D5-Lr) 1,020 ml @ 125 mls/ hr Q8H10M IV Last administered on 11/29/16 06:40; Admin Dose 125 MLS/HR; Start 11/23/16 at 00:30 Pyridoxine HCl (Vitamin B6) 25 mg DAILY PO Last administered on 11/29/16 08:17 ; Admin Dose 25 MG; Start 11/23/16 at 09:00 Famotidine (Pepcid Iv) 20 mg BID IV Last administered on 11/29/16 08:17; Admin Dose 20 MG; Start 11/23/16 at 12:30 Acetaminophen (Tylenol Tab) 325 mg Q6H PRN PO PAIN AND OR ELEVATED TEMP Last administered on 11/24/16 22:14; Admin Dose 325 MG; Start 11/23/16 at 13:00 Metoclopramide HCl (Reglan) 5 mg Q4H PRN PO nausea; Start 11/29/16 at 13:00 REGIDOR,RIKA Nov 29, 2016 13:58
--- NOTE | 2016-11-29 14:36 | QN ---
Documentation Comment iup 13 weeks hyperemesis pt doing better vss exam wnl labs improving a/p iup 13 wks hyperemesis-improving transaminities-improving continue care- plan dc JONEL Angelo MD Nov 29, 2016 14:36
--- NOTE | 2016-11-29 15:20 | RADRPT ---
PROCEDURE: US OB. CLINICAL INDICATION: viability TECHNIQUE: Transabdominal views of the pelvis are available for review. COMPARISON: 11/22/2016 FINDINGS: The cervix measures 3.5 cm in length. There is a single intrauterine gestation with the crown-rump length measuring 7.1 cm, corresponding to a gestational age of 13 weeks and 2 days. The heart rate is noted at 166 bpm. The ovaries are not visualized. There is no free fluid. RPTAT: AA IMPRESSION: Single live intrauterine with an estimated gestational age of 13 weeks and 2 days, based o n ultrasound measurements. GRISELDA based on ultrasound measurements is 06/04/2017. .Kaiser Maher MD, MD Date Time Electronically viewed and signed by .Kaiser Maher MD, on 11/29/2016 15:20 .S/
[2016-11-29] MEDS: METOCLOPRAMIDE 5 MG TAB PO PRN ×2 (16:18→22:13)
[2016-11-29] MEDS: FAMOTIDINE 20 MG TAB PO SCH (20:11)
[2016-11-29 20:31] VITALS: BP 114/70; RESP 18
[2016-11-30] MEDS: POTASSIUM CHLORIDE IV SCH (07:35)
[2016-11-30] MEDS: [UNRECOGNIZED DRUG - OTHER] IV SCH (07:35)
[2016-11-30] MEDS: DEXTROSE 5% IV SCH (07:35)
[2016-11-30] MEDS: METOCLOPRAMIDE 5 MG TAB PO PRN ×3 (07:35→16:52)
[2016-11-30 08:03] VITALS: BP 104/70; RESP 16
[2016-11-30] MEDS: FAMOTIDINE 20 MG TAB PO SCH (08:20)
[2016-11-30] MEDS: PYRIDOXINE 50 MG TAB PO SCH (08:20)
[2016-11-30] MEDS: ONDANSETRON 4 MG INJ IV PRN (11:01)
[2016-11-30] MEDS ORDERED: ONDA-43 PO (15:21)
[2016-11-30] MEDS ORDERED: METO5TAB11 PO (16:59)
--- NOTE | 2016-11-30 17:06 | PN ---
Date/Time of Note Date/Time of Note DATE: 11/30/16 TIME: 17:04 Assessment/Plan VTE Prophylaxis VTE Prophylaxis Intervention: SCD's Lines/Catheters IV Catheter Type (from Nrsg): Peripheral IV Urinary Cath still in place: No Assessment/Plan Assessment/Plan 31 yo F admitted for hyperemsis gravidum, now tolerating PO. plan for discharge today as per ob service with zofran/reglan QTc checked 6.4 and was wnl f/u with ob service as previously advised return precautions as per OB service Subjective 24 Hr Interval Summary Free Text/Dictation Feeling better. ready to go home. Exam/Review of Systems Vital Signs Vitals Vital Signs Date Time Temp Pulse Resp B/P Pulse Ox O2 Delivery O2 Flow Rate FiO2 11/30/16 08:03 98.3 77 16 104/70 98 11/29/16 08:00 Room Air Intake and Output 11/29/16 11/29/16 11/30/16 15:00 23:00 07:00 Intake Total 740 ml 1935 ml Balance 740 ml 1935 ml Exam laying in bed rrr no mrg lungs clear gravid no rashes Results Result Diagram: 11/29/16 0430 11/29/16 0430 Medications Medications Current Medications Ondansetron HCl 4 mg 4 mg Q6H PRN IV NAUSEA AND/OR VOMITING Last administered on 11/30/16 11:01; Admin Dose 4 MG; Start 11/22/16 at 21:00 Ondansetron HCl 8 mg/Sodium Chloride 54 ml @ 216 mls/hr Q6H PRN IV NAUSEA AND/ OR VOMITING Last administered on 11/27/16 00:01; Admin Dose 216 MLS/HR; Start at 23:00 Potassium Chloride/Dextrose/ Lactated Ringer's (KCl/D5-Lr) 1,020 ml @ 125 mls/ hr Q8H10M IV Last administered on 11/30/16 07:35; Admin Dose 125 MLS/HR; Start 11/23/16 at 00:30 Pyridoxine HCl (Vitamin B6) 25 mg DAILY PO Last administered on 11/30/16 08:20 ; Admin Dose 25 MG; Start 11/23/16 at 09:00 Acetaminophen (Tylenol Tab) 325 mg Q6H PRN PO PAIN AND OR ELEVATED TEMP Last administered on 11/24/16 22:14; Admin Dose 325 MG; Start 11/23/16 at 13:00 Metoclopramide HCl (Reglan) 5 mg Q4H PRN PO nausea Last administered on 16:52; Admin Dose 5 MG; Start 11/29/16 at 13:00 Famotidine (Pepcid) 20 mg Q12 PO Last administered on 11/30/16 08:20; Admin Dose 20 MG; Start 11/29/16 at 21:00 ALESSIO RIVERA MD Nov 30, 2016 17:06
--- NOTE | 2016-11-30 21:43 | DS ---
DATE OF ADMISSION: 11/22/2016 DATE OF DISCHARGE: 11/30/2016 DISCHARGE DIAGNOSES: 1. Hyperemesis gravidarum. 2. Intrauterine at 13 weeks. HISTORY AND HOSPITAL COURSE: The patient is a 31-year-old, G2, P0, who presents at 13 weeks complai nando of nausea and vomiting. The patient was diagnosed with hyperemesis gravidarum and admitted for IV hydration and electrolyte replacement. Throughout the hospital course the patient received IV f luids and nausea medication. The patient also had transaminitis, which now is improving. At [facility], the patient is tolerating p.o. She has only had one bout of nausea and vomiting today. No fev er or chills. Ultrasound done yesterday shows positive heart tones. Laboratory examination s hows electrolytes, CBC and CMP all within normal limits. The patient was discharged home. Follow Kylie Morrison within one week. ER precautions given. The patient is stable upon discharge. Dictated By: JONEL HEADLEY/ROSA Conf#: [id number] DID#: [id number]
[2016-12-01 12:56] LABS: ANA SCREEN NEGATIVE (NEGATIVE)
== END 2016-11-30 17:59 | disposition home or self-care (01) | DRG 781 ==
LOC: FTE 09:18 → PP2 16:15 → UNDODISIN 11-25 13:10
PROVIDERS: ADMIT Obstetrics & Gynecology; ATTEND Obstetrics & Gynecology
DX: O21.0 Mild hyperemesis gravidarum (principal); E86.0 Dehydration; O26.891 Other specified pregnancy related conditions, first trimester; E87.6 Hypokalemia; R10.13 Epigastric pain; D72.828 Other elevated white blood cell count; R74.0 Nonspecific elevation of levels of transaminase and lactic acid dehydrogenase [LDH]; Z3A.13 13 weeks gestation of pregnancy
CPT/HCPCS: 36415; 76705; 76801; 80048; 80053; 81001; 82150; 83690; 83735; 84702; 85025; 86038; 86255; 86704; 86709; 86803; 87340; 93005; 96374; 96375; 96376; J1200; J2405; J2765; J3475; J3480; J7030; J7121

== ENCOUNTER 2016-12-03 10:52 | Inpatient (IN) | payer MEDICAID ==
[~2016-12-03] VITALS: Ht 165.1 cm; Wt 72.2 kg
[~2016-12-03 10:52] MED LIST: METO5TAB11 PO; ONDA-43 PO
[2016-12-03] MEDS ORDERED: METOCLOPRAMIDE 10 MG INJ IV ONE (11:30)
[2016-12-03] MEDS ORDERED: SOD CHLORIDE 0.9% 1,000 ML IV ONE (11:30)
[2016-12-03] MEDS ORDERED: FAMOTIDINE 20 MG INJ IV ONE (11:30)
[2016-12-03] MEDS ORDERED: DIPHENHYDRAMINE 50 MG INJ IV ONE (11:30)
[2016-12-03 12:02] LABS: ADD SCAN DIFF NO
[2016-12-03 12:10] LABS: BASOPHIL # 0.1 10^3/ul (0.0-0.1); BASOPHILS % 0.2 % (0.0-2.0); HEMOGLOBIN 14.8 g/dl (12.0-16.0); LYMPHOCYTES # 1.3 10^3/ul (0.8-2.9); LYMPHOCYTES % 5.8 % (15.0-51.0); MEAN CORPUSCULAR HEMOGLOBIN 31.3 pg (29.0-33.0); MEAN CORPUSCULAR VOLUME 84.6 fl (82.0-101.0); MEAN PLATELET VOLUME 9.8 fl (7.4-10.4); MONOCYTE # 0.8 10^3/ul (0.3-0.9); MONOCYTES % 3.8 % (0.0-11.0); NEUTROPHIL # 19.9 10^3/ul (1.6-7.5); NEUTROPHILS % 89.2 % (39.0-77.0); PLATELET COUNT 417 10^3/UL (140-415); RED BLOOD COUNT 4.73 10^6/ul (4.20-5.40); RED CELL DISTRIBUTION WIDTH 11.9 % (11.5-14.5); WHITE BLOOD COUNT 22.3 10^3/ul (4.8-10.8)
[2016-12-03 12:27] LABS: ALBUMIN 4.9 g/dl (3.3-4.9); ALBUMIN/GLOBULIN RATIO 1.44; BILIRUBIN,INDIRECT 0.7 mg/dl (0-1.1); BILIRUBIN,TOTAL 0.7 mg/dl (0.2-1.3); CALCIUM 10.1 mg/dl (8.4-10.2); CREATININE 0.65 mg/dl (0.44-1.00); POTASSIUM 3.2 mmol/L (3.5-5.1); TOTAL PROTEIN 8.3 g/dl (6.1-8.1)
--- NOTE | 2016-12-03 12:27 | RADRPT ---
PROCEDURE: US Abdomen (right upper quadrant). CLINICAL INDICATION: Right upper quadrant abdomen pain. TECHNIQUE: Multiple real-time longitudinal and transverse images of the right upper quadrant of e abdomen were acquired utilizing a curved array transducer. Images were reviewed on a high-resoluti on PACS workstation. COMPARISON: None FINDINGS: The liver is normal in size and diffusely increased in echogenicity. There is no focal hepatic lesion. Color Doppler and pulsed Doppler sonography demonstrate normal a ntegrade flow in the portal vein. Sludge is present in the gallbladder. The gallbladder is otherwise normal with no stones or wall th ickening. There is no pericholecystic fluid collection. The bile ducts are normal with the common bile duct measuring 5.0 mm in diameter. The visualized portions of the pancreas are unremarkable with obscuration of the tail of the pancrea s. No free fluid is present. The right kidney measures 9.5 cm. There is normal echogenicity of the right kidney. There is no p erinephric fluid collection. No hydronephrosis, mass, or calculus is seen. IMPRESSION: 1. Fatty metamorphosis of the liver. 2. Sludge in the gallbladder. No gallstones or evidence of cholecystitis. 3. Otherwise normal right upper quadrant abdomen ultrasound. RPTAT: QQ .Alan Lino MD, MD Date Time Electronically viewed and signed by .Alan Lino MD, on 12/03/2016 12:27 .R/
[2016-12-03 12:34] LABS: ADD UMIC YES; UR BILIRUBIN (Dip) 1+ (NEGATIVE); UR BLOOD (Dip) TRACE (NEGATIVE); UR COLOR YELLOW (YELLOW); UR GLUCOSE (Dip) NEGATIVE (NEGATIVE); UR KETONES (Dip) 3+ (NEGATIVE); UR LEUKOCYTE ESTERASE (Dip) 1+ (NEGATIVE); UR NITRITE (Dip) NEGATIVE (NEGATIVE); UR TOTAL PROTEIN (Dip) 2+ (NEGATIVE); UR UROBILINOGEN (Dip) 2.0 E.U./dL (0.1-1.0)
--- NOTE | 2016-12-03 12:49 | RADRPT ---
PROCEDURE: US OB. CLINICAL INDICATION: Abdominal pain TECHNIQUE: Transabdominal and endovaginal imaging of the gravid uterus is available for review COMPARISON: None available FINDINGS: There is a single intrauterine demonstrating a heart rate of 185 bpm. The crown-rump yesenia th equals 7.1 cm, giving an estimated gestational age of 13 weeks 1 day by ultrasound criteria. No subchorionic hemorrhage is identified. The ovaries are unremarkable. IMPRESSION: Single live intrauterine with an estimated gestational age of 13 weeks 1 day by ultrasound criteria and an estimated date of delivery of 06/09/2017. RPTAT: HH .Jolanta Johnson MD, MD Date Time Electronically viewed and signed by .Jolanta Johnson MD, on 12/03/2016 12:49 .G/
[2016-12-03 13:02] LABS: UR BACTERIA MANY; URINE RBCS 0-2 /HPF (0)
[2016-12-03 13:03] LABS: ICTOTEST NEGATIVE (NEGATIVE); UR CLARITY CLOUDY (CLEAR)
[2016-12-03] MEDS ORDERED: POTASSIUM CHLORIDE (SR) 20 MEQ TAB PO STA (13:19)
[2016-12-03] MEDS ORDERED: CEFTRIAXONE 1 GM/50 ML (PMX) 50 ML IVPB ONE (13:30)
[2016-12-03] MEDS ORDERED: ALBUTEROL 0.5% (NEB) 2.5 MG/0.5 ML AMP ONE (14:07)
[2016-12-03] MEDS ORDERED: IPRATROPIUM (NEB) 0.5 MG/2.5 ML AMP ONE (14:07)
[2016-12-03] MEDS ORDERED: ONDANSETRON 4 MG INJ IV PRN (14:30)
[2016-12-03] MEDS ORDERED: ACETAMINOPHEN 325 MG TAB PO PRN (14:30)
--- NOTE | 2016-12-03 14:55 | ERD ---
ER Documentation Chief Complaint Date/Time DATE: 12/03/16 TIME: 14:50 Chief Complaint Complains of vomiting x 2 days HPI 31-year-old female patient who is a presents to the ED complaining of nonbilious nonbloody vomiting that started 2 days ago. Patient was seen here on November 22, 2016 for similar symptoms and diagnosed with hyperemesis gravidarum. Patient states that she has had 9 episodes of nonbilious nonbloody vomiting. At that time patient was admitted. Patient denies any fever, chills, abdominal pain, diarrhea, chest pain, wheezing, shortness of breath. Patient reports that her last menses was on September 02, 2016. Reports that her ASSISTANT SPA DIRECTOR is Dr. Olvera. ROS All systems reviewed and are negative except as per history of present illness. Medications Home Meds Active Scripts Metoclopramide Hcl* (Metoclopramide Hcl*) 5 Mg Tablet, 5 MG PO Q6 Y for nausea for 7 Days, #20 TAB Prov:ALESSIO RIVERA MD 11/30/16 Discontinued Reported Medications Ondansetron Hcl* (Zofran*) 4 Mg Tab, 4 MG PO Q6H Y for NAUSEA AND OR VOMITING, TAB 11/30/16 Allergies Allergies: Coded Allergies: No Known Allergy (Unverified , 12/03/16) verified PMhx/Soc History of Surgery: Yes (LEFT KNEE LATERAL RELEASE OF PATELA 2011) Anesthesia Reaction: No Hx Neurological Disorder: No Hx Respiratory Disorders: No Hx Cardiac Disorders: No Hx Psychiatric Problems: No Hx Miscellaneous Medical Probl: No Hx Alcohol Use: No Hx Substance Use: No Hx Tobacco Use: No Physical Exam Vitals Vital Signs Date Time Temp Pulse Resp B/P Pulse Ox O2 Delivery O2 Flow Rate FiO2 12/03/16 10:54 98.3 121 20 116/74 97 Physical Exam Const: Eot-tiu-gbypekcak, well-nourished. In no acute distress. Head: Atraumatic, normocephalic Eyes: Normal Conjunctiva without injection. No purulent discharge. ENT: Normal external ear, nose. Moist oropharynx without tonsillar exudates. Non -erythematous pharynx. Uvula midline. No drooling. No trismus. Neck: No cervical midline tenderness. Full range of motion. No meningismus. No cervical lymphadenopathy. No JVD. Resp: Clear to auscultation bilaterally. No wheezing, rhonchi, rales, or crackles. No accessory muscle use. No retractions. Cardio: Regular rate and rhythm. No murmurs, rubs or gallops. Abd: Soft, nontender, non distended. Normal bowel sounds. No palpable masses. No rebound tenderness. No guarding. Negative McBurney's point. Negative psoas sign. Negative obturator sign. Skin: No petechiae or rashes Back: No midline tenderness. No CVA tenderness. Ext: No cyanosis, or edema. Neur: Awake and alert. Normal gait. Normal coordination. Psych: Normal Mood and Affect Result Diagram: 12/07/16 0525 12/04/16 1010 Results 24 hrs Laboratory Tests Test 12/03/16 11:52 12/03/16 11:53 White Blood Count 22.310^3/ul Red Blood Count 4.7310^6/ul Hemoglobin 14.8g/dl Hematocrit 40.0% Mean Corpuscular Volume 84.6fl Mean Corpuscular Hemoglobin 31.3pg Mean Corpuscular Hemoglobin Concent 37.0g/dl Red Cell Distribution Width 11.9% Platelet Count 63355^3/UL Mean Platelet Volume 9.8fl Neutrophils % 89.2% Lymphocytes % 5.8% Monocytes % 3.8% Eosinophils % 0.0% Basophils % 0.2% Nucleated Red Blood Cells % 0.0/100WBC Neutrophils # 19.910^3/ul Lymphocytes # 1.310^3/ul Monocytes # 0.810^3/ul Eosinophils # 0.010^3/ul Basophils # 0.110^3/ul Nucleated Red Blood Cells # 0.010^3/ul Sodium Level 135mmol/L Potassium Level 3.2mmol/L Chloride Level 98mmol/L Carbon Dioxide Level 22mmol/L Anion Gap 18 Blood Urea Nitrogen 13mg/dl Creatinine 0.65mg/dl Glucose Level 124mg/dl Calcium Level 10.1mg/dl Total Bilirubin 0.7mg/dl Direct Bilirubin 0.00mg/dl Indirect Bilirubin 0.7mg/dl Aspartate Amino Transf (AST/SGOT) 69IU/L Alanine Aminotransferase (ALT/SGPT) 137IU/L Alkaline Phosphatase 88IU/L Total Protein 8.3g/dl Albumin 4.9g/dl Globulin 3.40g/dl Albumin/Globulin Ratio 1.44 Lipase 58U/L Beta HCG, Quantitative 32677.0mIU/ml Urine Color YELLOW Urine Clarity CLOUDY Urine pH 7.0 Urine Specific [place] 1.020 Urine Ketones 3+ Urine Nitrite NEGATIVE Urine Bilirubin 1+ Urine Ictotest NEGATIVE Urine Urobilinogen 2.0 E.U./dL Urine Leukocyte Esterase 1+ Urine Microscopic RBC 0-2/HPF Urine Microscopic WBC 2-5/HPF Urine Epithelial Cells MODERATE Urine Bacteria MANY Urine Hemoglobin TRACE Urine Glucose NEGATIVE% Urine Total Protein 2+ Current Medications Medications (Trade) Dose Ordered Sig/Masood Route PRN Reason Start Time Stop Time Status Last Admin Dose Admin Sodium Chloride (NS) 1,000 ml @ 1,000 mls/hr Q1H ONCE IV 12/03/16 11:30 12/03/16 12:29 DC 12/03/16 11:44 Famotidine (Pepcid Iv) 20 mg ONCE ONCE IV 12/03/16 11:30 12/03/16 11:35 DC 12/03/16 11:44 Metoclopramide HCl (Reglan) 10 mg ONCE ONCE IV 12/03/16 11:30 12/03/16 11:35 DC 12/03/16 11:44 Diphenhydramine HCl 25 mg 25 mg ONCE ONCE IV 12/03/16 11:30 12/03/16 11:35 DC 12/03/16 11:44 Ceftriaxone Sodium (Rocephin) 50 ml @ 100 mls/hr ONCE ONCE IVPB 12/03/16 13:30 12/03/16 13:59 DC 12/03/16 13:38 Potassium Chloride (Klor-Con 20) 40 meq ONCE STAT PO 12/03/16 13:19 12/03/16 13:20 DC 12/03/16 13:38 Procedures/MDM 31-year-old female patient who is a presents to the ED complaining of hyperemesis. Patient is afebrile and nontoxic-appearing. Patient is actively vomiting. An ultrasound, beta-hCG, CBC, type and RH, UA was ordered to evaluate patient. CBC: Leukocytosis of 22.3 or anemia CMP: Potassium of 3.2. 40 meq of K dur given to patient Urine: No elevation in nitrites, leukocyte esterase, hematuria. No evidence of UTI Rh: O positive No indication for Rhogam at this time. beta Hc.0 PROCEDURE: US OB. CLINICAL INDICATION: Abdominal pain TECHNIQUE: Transabdominal and endovaginal imaging of the gravid uterus is available for review COMPARISON: None available FINDINGS: There is a single intrauterine demonstrating a heart rate of 185 bpm. The crown-rump length equals 7.1 cm, giving an estimated gestational age of 13 weeks 1 day by ultrasound criteria. No subchorionic hemorrhage is identified. The ovaries are unremarkable. IMPRESSION: Single live intrauterine with an estimated gestational age of 13 weeks 1 day by ultrasound criteria and an estimated date of delivery of 2016. PROCEDURE: US Abdomen (right upper quadrant). CLINICAL INDICATION: Right upper quadrant abdomen pain. TECHNIQUE: Multiple real-time longitudinal and transverse images of the right upper quadrant of the abdomen were acquired utilizing a curved array transducer. Images were reviewed on a high-resolution PACS workstation. COMPARISON: None FINDINGS: The liver is normal in size and diffusely increased in echogenicity. There is no focal hepatic lesion. Color Doppler and pulsed Doppler sonography demonstrate normal antegrade flow in the portal vein. Sludge is present in the gallbladder. The gallbladder is otherwise normal with no stones or wall thickening. There is no pericholecystic fluid collection. The bile ducts are normal with the common bile duct measuring 5.0 mm in diameter. The visualized portions of the pancreas are unremarkable with obscuration of the tail of the pancreas. No free fluid is present. The right kidney measures 9.5 cm. There is normal echogenicity of the right kidney. There is no perinephric fluid collection. No hydronephrosis, mass, or calculus is seen. IMPRESSION: 1. Fatty metamorphosis of the liver. 2. Sludge in the gallbladder. No gallstones or evidence of cholecystitis. 3. Otherwise normal right upper quadrant abdomen ultrasound. Patient's bleeding symptoms have stabilized while in the department. Low suspicion for symptomatic anemia, ectopic , sepsis, PID, appendicitis, ovarian torsion, tubo-ovarian abscess, surgical abdomen, or other emergent conditions. Patient was educated that there is a risk for threatened . This case was discussed with my supervising physician Dr. Joseph and laborist motel front desk clerk, Dr. Bravo. We all agreed that patient should be admitted at this time. Admission was discussed with the patient. She agreed. Questions were answered. Patient is hemodynamically stable. Departure Diagnosis: Primary Impression: Hyperemesis gravidarum Condition: Fair HUSAM HOPKINS PA-C Dec 03, 2016 14:55 The visualized portions of the pancreas are unremarkable with obscuration of the tail of the pancreas. No free fluid is present. The right kidney measures 9.5 cm. There is normal echogenicity of the right kidney. There is no perinephric fluid collection. No hydronephrosis, mass, or calculus is seen. IMPRESSION: 1. Fatty metamorphosis of the liver. 2. Sludge in the gallbladder. No gallstones or evidence of cholecystitis. 3. Otherwise normal right upper quadrant abdomen ultrasound. Patient's bleeding symptoms have stabilized while in the department. Low suspicion for symptomatic anemia, ectopic , sepsis, PID, appendicitis, ovarian torsion, tubo-ovarian abscess, surgical abdomen, or other emergent conditions. Patient was educated that there is a risk for threatened . This case was discussed with my supervising physician Dr. Joseph and laborist motel front desk clerk, Dr. Hemphill. We all agreed that patient should be admitted at this time. Admission was discussed with the patient. She agreed. Questions were answered. Patient is hemodynamically stable. HUSAM HOPKINS PA-C Dec 03, 2016 14:55
[2016-12-03 17:44] VITALS: TEMP 98.5
[2016-12-03 18:15] VITALS: BP 108/57; PULSE 68; RESP 16
--- NOTE | 2016-12-03 20:01 | HP ---
Date/Time of Note Date/Time of Note DATE: 12/03/16 TIME: 20:00 OB - History Hx of Present Chief Complaint: Hyperemesis : 1 Para: 0 Care: Good Care Abnormal Ultrasound Findings: PROCEDURE: US OB. CLINICAL INDICATION: Abdominal pain TECHNIQUE: Transabdominal and endovaginal imaging of the gravid uterus is available for review COMPARISON: None available FINDINGS: There is a single intrauterine demonstrating a heart rate of 185 bpm. The crown-rump length equals 7.1 cm, giving an estimated gestational age of 13 weeks 1 day by ultrasound criteria. No subchorionic hemorrhage is identified. The ovaries are unremarkable. IMPRESSION: Single live intrauterine with an estimated gestational age of 13 weeks 1 day by ultrasound criteria and an estimated date of delivery of 2016. RPTAT: HH .Jolanta Johnson MD, Date Time Electronically viewed and signed by .Jolanta Johnson MD, on 12/03/2016 12 :49 .G/ CC: HUSAM HOPKINS PA-C PROCEDURE: US Abdomen (right upper quadrant). CLINICAL INDICATION: Right upper quadrant abdomen pain. TECHNIQUE: Multiple real-time longitudinal and transverse images of the right upper quadrant of the abdomen were acquired utilizing a curved array transducer. Images were reviewed on a high-resolution PACS workstation. COMPARISON: None FINDINGS: The liver is normal in size and diffusely increased in echogenicity. There is no focal hepatic lesion. Color Doppler and pulsed Doppler sonography demonstrate normal antegrade flow in the portal vein. Sludge is present in the gallbladder. The gallbladder is otherwise normal with no stones or wall thickening. There is no pericholecystic fluid collection. The bile ducts are normal with the common bile duct measuring 5.0 mm in diameter. The visualized portions of the pancreas are unremarkable with obscuration of the tail of the pancreas. No free fluid is present. The right kidney measures 9.5 cm. There is normal echogenicity of the right kidney. There is no perinephric fluid collection. No hydronephrosis, mass, or calculus is seen. IMPRESSION: 1. Fatty metamorphosis of the liver. 2. Sludge in the gallbladder. No gallstones or evidence of cholecystitis. 3. Otherwise normal right upper quadrant abdomen ultrasound. RPTAT: QQ .Alan Lino MD, MD Date Time Electronically viewed and signed by .Alan Lino MD, MD on 12/03/2016 12:27 .R/ CC: HUSAM HOPKINS PA-C Past Family/Social History * Past Medical, Surgical, Family and Obstetric Histories reviewed from chart. OB Admission Exam Vital Signs Vital Signs Vital Signs Date Time Temp Pulse Resp B/P Pulse Ox O2 Delivery O2 Flow Rate FiO2 12/03/16 17:44 98.5 81 20 109/59 98 Room Air Physical Exam HEENT: WNL Heart: Rhythm Normal Lungs: Clear, Equal Abdomen: WNL Extremities: Normal Reflexes: Normal Cervical Dilatation: None Heart Rate: 140's Last 72 hours Lab Results CBC & BMP 12/03/16 11:52 Liver Function Test 12/03/16 11:52 Alanine Aminotransferase (ALT/SGPT) 137 H Albumin 4.9 Alkaline Phosphatase 88 Aspartate Amino Transf (AST/SGOT) 69 H Direct Bilirubin 0.00 Total Protein 8.3 H OB Assessment/Plan Other Assessment: Hyperemesis at 13+ weeks of gestation Other plan: IV fluid Zofran as needed Vitamin B6 We will obtain hospitalist consult Advance diet as tolerated urine cultures to be done SHERLY COX MD Dec 03, 2016 20:01
[2016-12-03 20:11] VITALS: BP 96/57; RESP 18
[2016-12-03 21:00] VITALS: Ht 165.1 cm; Wt 72.2 kg
[2016-12-03] MEDS: ONDANSETRON 4 MG INJ IV PRN (21:03)
[2016-12-03] MEDS: LACTATED RINGER'S 1,000 ML IV SCH (21:04)
[2016-12-04] MEDS: LACTATED RINGER'S 1,000 ML IV SCH ×3 (05:18→21:44)
[2016-12-04] MEDS: ONDANSETRON 4 MG INJ IV PRN ×3 (05:18→17:46)
[2016-12-04 08:41] VITALS: BP 97/53; RESP 17
[2016-12-04] MEDS: PYRIDOXINE 50 MG TAB PO SCH (09:37)
--- NOTE | 2016-12-04 09:56 | QN ---
Documentation Comment iup 13 weeks hyperemesis improving vss exam wnl a.p iup 13 weeks hyperemeis-improving elevated lft/sludge in gallblader/fatty liver- repeat cbc,cmp-hospitalist consult JONEL POLANCO MD Dec 04, 2016 09:56
[2016-12-04 10:23] LABS: ADD SCAN DIFF NO
[2016-12-04 10:29] LABS: BASOPHIL # 0.1 10^3/ul (0.0-0.1); BASOPHILS % 0.4 % (0.0-2.0); EOSINOPHILS # 0.1 10^3/ul (0.0-0.5); EOSINOPHILS % 0.5 % (0.0-7.0); HEMATOCRIT 33.9 % (37.0-47.0); LYMPHOCYTES # 2.1 10^3/ul (0.8-2.9); LYMPHOCYTES % 14.7 % (15.0-51.0); MEAN CORPUSCULAR HEMOGLOBIN 31.5 pg (29.0-33.0); MEAN CORPUSCULAR HGB CONC 35.4 g/dl (32.0-37.0); MEAN PLATELET VOLUME 9.7 fl (7.4-10.4); MONOCYTE # 0.9 10^3/ul (0.3-0.9); MONOCYTES % 6.3 % (0.0-11.0); NEUTROPHIL # 10.9 10^3/ul (1.6-7.5); NEUTROPHILS % 77.4 % (39.0-77.0); PLATELET COUNT 294 10^3/UL (140-415); RED BLOOD COUNT 3.81 10^6/ul (4.20-5.40); RED CELL DISTRIBUTION WIDTH 12.4 % (11.5-14.5)
[2016-12-04 10:49] LABS: BILIRUBIN,INDIRECT 0.6 mg/dl (0-1.1); BILIRUBIN,TOTAL 0.6 mg/dl (0.2-1.3); CALCIUM 9.1 mg/dl (8.4-10.2); CREATININE 0.7 mg/dl (0.44-1.00); POTASSIUM 3.6 mmol/L (3.5-5.1)
[2016-12-04 20:00] VITALS: BP 105/54; RESP 18
[2016-12-05] MEDS: ONDANSETRON 4 MG INJ IV PRN ×2 (00:27→08:19)
[2016-12-05] MEDS: ACETAMINOPHEN 325 MG TAB PO PRN ×2 (05:03→20:26)
[2016-12-05] MEDS: METOCLOPRAMIDE 10 MG INJ IV PRN ×2 (05:03→12:38)
[2016-12-05] MEDS: LACTATED RINGER'S 1,000 ML IV SCH ×2 (05:04→12:38)
[2016-12-05 08:00] VITALS: BP 104/52; RESP 18
[2016-12-05] MEDS: PYRIDOXINE 50 MG TAB PO SCH (08:17)
[2016-12-05] MEDS ORDERED: DIPHENHYDRAMINE 50 MG INJ IV PRN (19:00)
[2016-12-05] MEDS ORDERED: DEXTROSE 5%-LR 1,000 ML IV SCH (19:00)
[2016-12-05] MEDS: DEXTROSE 5%-LR 1,000 ML IV SCH (20:34)
[2016-12-05] MEDS: FAMOTIDINE 20 MG INJ IV SCH (20:34)
--- NOTE | 2016-12-05 20:45 | QN ---
Documentation Comment HD #2 Hyperemesis with IUP at 13 weeks. Pt is tolerating a small amount of solids but mostly is having ice chips and gummy candy. Still battling nausea even if not vomiting. Sleeping OK. States her urine is fairly light colored. LFT's were up a little and starting to go down on 12/04. Will recheck 12/06. Elevated WBC fairly common with hyperemesis and went down. P: Benadryl qHS to help with sleep. Will increase Zofran to 8mg q 6. Ensure to bedside. Pepcid 20 BID. Will repeat LFT's in AM. BENJI RODRÍGUEZ MD Dec 05, 2016 18:05
[2016-12-05] MEDS: ONDANSETRON INJ 8 MG in SOD CHLORIDE 0.9% 50 ML IV SCH (20:51)
[2016-12-05] MEDS ORDERED: FAMOTIDINE 20 MG INJ IV SCH (21:00)
[2016-12-05] MEDS ORDERED: ONDANSETRON INJ 8 MG in SOD CHLORIDE 0.9% 50 ML IV PRN (22:00)
[2016-12-06] MEDS: DIPHENHYDRAMINE 50 MG INJ IV PRN ×2 (00:27→21:06)
[2016-12-06] MEDS: ONDANSETRON INJ 8 MG in SOD CHLORIDE 0.9% 50 ML IV SCH ×5 (01:53→18:21)
[2016-12-06] MEDS ORDERED: ONDANSETRON 4 MG INJ IV PRN (02:30)
[2016-12-06] MEDS: DEXTROSE 5%-LR 1,000 ML IV SCH ×4 (03:00→19:00)
[2016-12-06 08:08] VITALS: BP 95/55; RESP 18
[2016-12-06] MEDS: PYRIDOXINE 50 MG TAB PO SCH (10:15)
[2016-12-06] MEDS: FAMOTIDINE 20 MG INJ IV SCH ×2 (10:16→21:04)
--- NOTE | 2016-12-06 12:02 | QN ---
Documentation Comment Laborist Feeling a bit better today. Starting to feel a bit nauseous- ate some broth for lunch and added a little rice. Last nausea meds were before 6am. No vomiting today. Ambulating. VS 98.0 95/55 68 18 98% on RA Gen: appears tired, pleasant CV: RRR, nl s1s2 Resp: CTAB Abd: soft, NTND Ext: BLE nontender, no edema, symmetric Labs: AST 64 (from 51 yesterday, 69 on admission) ALT 149 (from 121 yesterday, 137 on admission) HD#3 for 31yo G1 at 13+4wk w/hyperemesis gravidarum and fatty liver w/sludge in GB ->Continue ATC IV antiemetics, Vit B6 and Pepcid for now. If pt able to tolerate meals today, consider changing to PO antiemetics in AM in anticipation of d/c home ->Continue bland diet ->Elevated LFTs may be 2/2 N/V, however will consult Medicine given uptrending values Plan d/w pt, including possible d/c home tomorrow if able to tolerate POs and nausea is managed with PO antiemetics. Pt agreeable to plan. Questions answered to her and her partner's satisfaction. DEBORAH BRASHER MD Dec 06, 2016 12:02
[2016-12-06] MEDS: GUAIFENESIN/DM 5ML CUP PO PRN (12:19)
[2016-12-06 16:18] LABS: ALANINE AMINOTRANSFERASE 154 IU/L (13-69); ALBUMIN 3.3 g/dl (3.3-4.9); ALKALINE PHOSPHATASE 60 IU/L (42-121); ASPARTATE AMINO TRANSFERASE 66 IU/L (15-46); BILIRUBIN,INDIRECT 0.3 mg/dl (0-1.1); BILIRUBIN,TOTAL 0.3 mg/dl (0.2-1.3); CHOL/HDL RATIO 4.5 RATIO; CHOLESTEROL 159 mg/dl (100-200); HDL CHOLESTEROL 35 mg/dl (34-82); TOTAL PROTEIN 5.5 g/dl (6.1-8.1); TRIGLYCERIDES 150 mg/dl (0-149)
--- NOTE | 2016-12-06 16:23 | CONS ---
Date/Time of Note Date/Time of Note DATE: 12/06/16 TIME: 15:33 Assessment/Plan Assessment/Plan Chief Complaint/Hosp Course 31 -year-old female with intrauterine at 13 weeks and 1 day who was admitted for hyperemesis gravidarum for whom we are consulted to assist in management because of chronically elevated liver enzymes. 1. Chronically elevated transaminases 2/2 chronic liver damage for which r/o underlying cirrhosis secondary to heavy alcohol use in the past and fatty liver 2. UTI Discussion: Patient's right upper quadrant ultrasound shows fatty liver with sludge in the gallbladder without evidence of gallstones or cholecystitis. The patient also has a history of heavy alcohol use but she assures me that she has quit completely. Fatty liver is a known cause of elevated liver enzymes and transaminitis and recommendations are for a low-fat low-cholesterol diet and lifestyle changes to include exercise, absolutely no alcohol and weight loss. As patient has no evidence of cholecystitis, hyperbilirubinemia or gallstones, no further workup is indicated at this time. She will benefit from serial monitoring of her liver enzymes to ensure they stay stable. Prophylactically we will rule out chronic hepatitis and dyslipidemia but if these indices come back negative no further intervention is required. For her urinary tract infection I recommend empiric treatment due to her gravid state. Thanks for the consult, we will follow with you Problems: Consultation Date/Type/Reason Admit Date/Time Dec 03, 2016 at 14:06 Date of Consultation: Dec 06, 2016 Type of Consultation: Medicine Reason for Consultation elevated liver enzymes Referring Provider: DEBORAH BRASHER MD Hx of Present Illness 31-year-old female 1 para 1 who is being admitted for hyperemesis gravidarum with intrauterine at 13 weeks and 1 day.The patient was noted to have elevated liver enzymes on admission and these have been trended and have remained fairly stable however obstetrics have obtained medicine consult to make sure that there is no further intervention required and there are no further abnormalities to be found. She did have ultrasound of the abdomen that showed fatty metamorphosis of the liver and sludge in the gallbladder. There was no gallstones or evidence of cholecystitis. I was speaking to the patient has not been told before that he has abnormal liver enzymes but she does have a history of heavy alcohol use which she tells me that she does not drink anymore. She also has a history of substance abuse in her younger days. She denies yellowish discoloration of her skin or her eyes, she denies right upper quadrant abdominal pain at this time. Her main complaints of significant nausea,vomiting,lethargy and headache all associated with hyperemesis gravidarum. She denies prolonged use of any prescribed medications. ROS: CONSTITUTIONAL: denies fever, chills, weight loss, weight gain HEENT: oc headaches Eyes: No double or blurred vision or eye pain. CARDIOVASCULAR: no chest discomfort, chest pain, irregular rhythm, tachycardia or diaphoresis. RESPIRATORY: denies shortness of breath or wheezing. GASTROINTESTINAL: patient is here for hyperemesis gravidarum GENITOURINARY: denies dysuria, frequency, urgency or hematuria. MUSCULOSKELETAL: also denies myalgias, arthralgias or edema. SKIN: denies rash or jaundice NEUROLOGIC: denies dizziness, focal neurological change PSYCHIATRIC: denies history of depression in the past, any suicidal ideation. substance abuse. ENDOCRINE: denies polyuria, polydipsia or hot or cold intolerance. HEMATOLOGIC: denies history of easy bruising, anemia or eczema. Past Medical History Medical History: no pertinent history Past Surgical History Past Surgical Hx: no surgical history Family History Significant Family History: no pertinent family hx Social History Alcohol Use: sober (hx of heavy alcohol use) Smoking Status: Former smoker Drug Use: other (remote substance abuse when she was about 17, but not for a prolonged preiod) Exam/Review of Systems Vital Signs Vitals Vital Signs Date Time Temp Pulse Resp B/P Pulse Ox O2 Delivery O2 Flow Rate FiO2 12/06/16 08:08 98.0 68 18 95/55 98 12/03/16 17:44 Room Air Intake and Output 12/05/16 12/05/16 12/06/16 14:59 22:59 06:59 Intake Total 855 ml 2013 ml 1594 ml Balance 855 ml 2013 ml 1594 ml Exam Constitutional: alert, oriented, No distress Psych: anxiety Head: atraumatic, normocephalic Eyes: PERRL, No icteric ENMT: mucosa pink and moist Neck: non-tender, supple Respiratory: clear to auscultation Cardiovascular: nl pulses, regular rate and rhythm, No murmurs/extra sounds Gastrointestinal: bowel sounds, non-tender, soft Musculoskeletal: nl extremities to inspection Neurological: lethargic, nl mental status Results Result Diagram: 12/04/16 1020 12/04/16 1010 Results 24 hrs Laboratory Tests Test 12/06/16 05:00 Aspartate Amino Transf (AST/SGOT) 64 H Alanine Aminotransferase (ALT/SGPT) 149 H Medications Medications Current Medications Pyridoxine HCl (Vitamin B6) 50 mg DAILY PO Last administered on 12/06/16 10:15 ; Admin Dose 50 MG; Start 12/04/16 at 09:00 Acetaminophen (Tylenol Tab) 650 mg Q6H PRN PO PAIN AND OR ELEVATED TEMP Last administered on 12/05/16 20:26; Admin Dose 650 MG; Start 12/05/16 at 05:00 Metoclopramide HCl (Reglan) 10 mg Q8H PRN IV NAUSEA Last administered on 12:38; Admin Dose 10 MG; Start 12/05/16 at 05:00 Famotidine (Pepcid Iv) 20 mg BID IV Last administered on 12/06/16 10:16; Admin Dose 20 MG; Start 12/05/16 at 21:00 Diphenhydramine HCl (Benadryl) 25 mg ONCE PRN IV SLEEP; Start 12/05/16 at 19:00 ; Stop 12/06/16 at 18:59 Diphenhydramine HCl 25 mg 25 mg HS PRN IV SLEEP Last administered on 12/06/16 00:27; Admin Dose 25 MG; Start 12/05/16 at 19:00 Ondansetron HCl 8 mg/Sodium Chloride 54 ml @ 216 mls/hr Q6 IV Last administered on 12/06/16 12:18; Admin Dose 216 MLS/HR; Start 12/05/16 at 20:00 Dextrose/Lactated Ringer's 1,000 ml @ 125 mls/hr Q8H IV Last administered on 06:54; Admin Dose 125 MLS/HR; Start 12/05/16 at 19:00 Ondansetron HCl/ Sodium Chloride (Zofran Inj/NS) 54 ml @ 216 mls/hr Q6H PRN IV NAUSEA AND/OR VOMITING Last administered on 12/06/16 06:55; Admin Dose 216 MLS/HR; Start 12/05/16 at 22:00 Guaifenesin/ Dextromethorphan (Robitussin Dm Liquid Cup) 10 ml Q6H PRN PO COUGH Last administered on 12/06/16t 12:19; Admin Dose 10 ML; Start 12/06/16 at 11:30 Procedures Procedures PROCEDURE: US Abdomen (right upper quadrant). CLINICAL INDICATION: Right upper quadrant abdomen pain. TECHNIQUE: Multiple real-time longitudinal and transverse images of the right upper quadrant of the abdomen were acquired utilizing a curved array transducer. Images were reviewed on a high-resolution PACS workstation. COMPARISON: None FINDINGS: The liver is normal in size and diffusely increased in echogenicity. There is no focal hepatic lesion. Color Doppler and pulsed Doppler sonography demonstrate normal antegrade flow in the portal vein. Sludge is present in the gallbladder. The gallbladder is otherwise normal with no stones or wall thickening. There is no pericholecystic fluid collection. The bile ducts are normal with the common bile duct measuring 5.0 mm in diameter. The visualized portions of the pancreas are unremarkable with obscuration of the tail of the pancreas. No free fluid is present. The right kidney measures 9.5 cm. There is normal echogenicity of the right kidney. There is no perinephric fluid collection. No hydronephrosis, mass, or calculus is seen. IMPRESSION: 1. Fatty metamorphosis of the liver. 2. Sludge in the gallbladder. No gallstones or evidence of cholecystitis. 3. Otherwise normal right upper quadrant abdomen ultrasound. RPTAT: QQ .Alan Lino MD, Date Time Electronically viewed and signed by .Alan Lino MD, on 12/03/2016 12:27 RIGOBERTO WARE Dec 06, 2016 15:53
[2016-12-06 17:08] LABS: HEPATITIS B CORE ANTIBODY NEGATIVE (NEGATIVE)
[2016-12-06] MEDS: CEFTRIAXONE 1 GM/50 ML (PMX) 50 ML IVPB SCH (17:08)
[2016-12-06 20:09] VITALS: BP 106/55; RESP 19
[2016-12-07] MEDS: ONDANSETRON INJ 8 MG in SOD CHLORIDE 0.9% 50 ML IV SCH ×4 (00:06→18:28)
[2016-12-07] MEDS: DEXTROSE 5%-LR 1,000 ML IV SCH ×3 (01:15→20:34)
[2016-12-07 05:50] LABS: ADD SCAN DIFF NO
[2016-12-07 06:48] LABS: BASOPHILS % 0.3 % (0.0-2.0); EOSINOPHILS # 0.1 10^3/ul (0.0-0.5); EOSINOPHILS % 1.1 % (0.0-7.0); HEMATOCRIT 32.8 % (37.0-47.0); HEMOGLOBIN 11.3 g/dl (12.0-16.0); LYMPHOCYTES # 1.4 10^3/ul (0.8-2.9); LYMPHOCYTES % 14.9 % (15.0-51.0); MEAN CORPUSCULAR HEMOGLOBIN 31.4 pg (29.0-33.0); MEAN CORPUSCULAR HGB CONC 34.5 g/dl (32.0-37.0); MEAN CORPUSCULAR VOLUME 91.1 fl (82.0-101.0); MEAN PLATELET VOLUME 10.2 fl (7.4-10.4); MONOCYTE # 0.7 10^3/ul (0.3-0.9); MONOCYTES % 6.9 % (0.0-11.0); NEUTROPHIL # 7.2 10^3/ul (1.6-7.5); NEUTROPHILS % 76.1 % (39.0-77.0); PLATELET COUNT 248 10^3/UL (140-415); RED CELL DISTRIBUTION WIDTH 12.6 % (11.5-14.5); WHITE BLOOD COUNT 9.5 10^3/ul (4.8-10.8)
[2016-12-07 07:56] VITALS: BP 91/50; RESP 16
[2016-12-07] MEDS: FAMOTIDINE 20 MG INJ IV SCH ×2 (09:14→20:34)
[2016-12-07] MEDS: PYRIDOXINE 50 MG TAB PO SCH (09:14)
--- NOTE | 2016-12-07 15:22 | QN ---
Documentation Comment December 07, 2016 Hospital ground report This patient is a 31 years old 2 para 0 who was admitted in the hospital on the due to nausea and vomiting with diagnosis of hyperemesis gravidarum and possible fatty liver On ultrasound study showed a fatty liver with sludge in the gallbladder without evidence of gallstones or cholecystitis This patient has history of heavy alcohol consumption but apparently recently is not drinking that much she has an elevated transaminase which is typical of alcohol use and fatty liver. Liver enzymes not elevated no hyperbilirubinemia She is on IV Zofran today she is doing better less nausea and vomiting She is being consulted with internal medicine regarding her liver condition. her blood work today shows some improvement : W BC from 22.3 on 12/03/16 now is only 9.5 . RBC 3.6 hemoglobin 11.3 and hematocrit 32.8 Laboratory Tests Test 12/07/16 05:25 White Blood Count 9.510^3/ul Red Blood Count 3.6010^6/ul Hemoglobin 11.3g/dl Hematocrit 32.8% Mean Corpuscular Volume 91.1fl Mean Corpuscular Hemoglobin 31.4pg Mean Corpuscular Hemoglobin Concent 34.5g/dl Red Cell Distribution Width 12.6% Platelet Count 38703^3/UL Mean Platelet Volume 10.2fl Neutrophils % 76.1% Lymphocytes % 14.9% Monocytes % 6.9% Eosinophils % 1.1% Basophils % 0.3% Nucleated Red Blood Cells % 0.0/100WBC Neutrophils # 7.210^3/ul Lymphocytes # 1.410^3/ul Monocytes # 0.710^3/ul Eosinophils # 0.110^3/ul Basophils # 0.010^3/ul Nucleated Red Blood Cells # 0.010^3/ul Current Medications Medications (Trade) Dose Ordered Sig/Masood Route PRN Reason Start Time Stop Time Status Last Admin Dose Admin Sodium Chloride (NS) 1,000 ml @ 1,000 mls/hr Q1H ONCE IV 12/03/16 11:30 12/03/16 12:29 DC 12/03/16 11:44 Famotidine (Pepcid Iv) 20 mg ONCE ONCE IV 12/03/16 11:30 12/03/16 11:35 DC 12/03/16 11:44 Metoclopramide HCl (Reglan) 10 mg ONCE ONCE IV 12/03/16 11:30 12/03/16 11:35 DC 12/03/16 11:44 Diphenhydramine HCl 25 mg 25 mg ONCE ONCE IV 12/03/16 11:30 12/03/16 11:35 DC 12/03/16 11:44 Ceftriaxone Sodium (Rocephin) 50 ml @ 100 mls/hr ONCE ONCE IVPB 12/03/16 13:30 12/03/16 13:59 DC 12/03/16 13:38 Potassium Chloride (Klor-Con 20) 40 meq ONCE STAT PO 12/03/16 13:19 12/03/16 13:20 DC 12/03/16 13:38 Ondansetron HCl (Zofran Inj) 4 mg BRIDGE ORDER PRN IV NAUSEA AND/OR VOMITING 12/03/16 14:30 12/03/16 20:44 DC 12/03/16 15:51 Acetaminophen (Tylenol Tab) 650 mg ER BRIDGE PRN PO MILD PAIN/FEVER 12/03/16 14:30 12/03/16 20:44 DC Ipratropium [place] (Atrovent 0.02% (Neb)) 0.5 mg STK-MED ONCE .ROUTE 12/03/16 14:07 12/03/16 14:08 DC Albuterol 2.5 mg 2.5 mg STK-MED ONCE .ROUTE 12/03/16 14:07 12/03/16 14:08 DC Lactated Ringer's (Lr) 1,000 ml @ 125 mls/hr Q8H IV 12/03/16 20:30 12/05/16 18:43 DC 12/05/16 12:38 Ondansetron HCl (Zofran Inj) 4 mg Q6H PRN IV NAUSEA AND/OR VOMITING 12/03/16 20:30 12/05/16 21:04 DC 12/05/16 08:19 Pyridoxine HCl (Vitamin B6) 50 mg DAILY PO 12/04/16 09:00 12/07/16 09:14 Acetaminophen (Tylenol Tab) 650 mg Q6H PRN PO PAIN AND OR ELEVATED TEMP 12/05/16 05:00 12/05/16 20:26 Metoclopramide HCl (Reglan) 10 mg Q8H PRN IV NAUSEA 12/05/16 05:00 12/05/16 12:38 Famotidine 20 mg 20 mg BID IV 12/05/16 21:00 12/07/16 09:14 Dextrose/Lactated Ringer's (D5-Lr) 1,000 ml @ 125 mls/hr Q8H IV 12/05/16 19:00 12/05/16 23:46 DC Diphenhydramine HCl (Benadryl) 25 mg ONCE PRN IV SLEEP 12/05/16 19:00 12/06/16 18:59 DC Diphenhydramine HCl (Benadryl) 25 mg HS PRN IV SLEEP 12/05/16 19:00 12/06/16 21:06 Ondansetron HCl 8 mg 8 mg Q6H PRN IV NAUSEA AND/OR VOMITING 12/06/16 02:30 12/06/16 02:30 DC Ondansetron HCl/ Sodium Chloride (Zofran Inj/NS) 54 ml @ 216 mls/hr Q6 IV 12/05/16 20:00 12/07/16 11:45 Famotidine 20 mg 20 mg BID IV 12/05/16 21:00 12/05/16 23:46 DC Dextrose/Lactated Ringer's 1,000 ml @ 125 mls/hr Q8H IV 12/05/16 19:00 12/07/16 09:23 Ondansetron HCl/ Sodium Chloride (Zofran Inj/NS) 54 ml @ 216 mls/hr Q6H PRN IV NAUSEA AND/OR VOMITING 12/05/16 22:00 12/06/16 06:55 Guaifenesin/ Dextromethorphan 10 ml 10 ml Q6H PRN PO COUGH 12/06/16 11:30 12/06/16 12:19 Ceftriaxone Sodium (Rocephin) 50 ml @ 100 mls/hr Q24H IVPB 12/06/16 17:00 12/06/16 17:08 Plan would be to continue the same regimen Internal medicine is also in consultation for care of this patient BETTIE BOUDREAUX MD Dec 07, 2016 15:22
[2016-12-07] MEDS: CEFTRIAXONE 1 GM/50 ML (PMX) 50 ML IVPB SCH (17:14)
[2016-12-07] MEDS: GUAIFENESIN/DM 5ML CUP PO PRN (18:31)
--- NOTE | 2016-12-07 19:06 | CONS ---
Date/Time of Note Date/Time of Note DATE: 12/07/16 TIME: 19:01 Consult Date/Type/Reason Admit Date/Time Dec 03, 2016 at 14:06 Initial Consult Date 12/06/16 Type of Consultation: Medicine Ordering Provider: DEBORAH BRASHER MD Subjective Pt still with some nausea. Objective Vital Signs Date Time Temp Pulse Resp B/P Pulse Ox O2 Delivery O2 Flow Rate FiO2 12/07/16 07:56 98.0 76 16 91/50 100 12/03/16 17:44 Room Air Intake and Output 12/06/16 12/06/16 12/07/16 15:00 23:00 07:00 Intake Total 104 ml 650 ml 1458 ml Balance 104 ml 650 ml 1458 ml Exam Constitutional: alert, oriented, No distress Psych: some anxiety Head: atraumatic, normocephalic Eyes: PERRL, No icteric ENMT: mucosa pink and moist Neck: non-tender, supple Respiratory: clear to auscultation Cardiovascular: nl pulses, regular rate and rhythm, No murmurs/extra sounds Gastrointestinal: bowel sounds, non-tender, soft Musculoskeletal: nl extremities to inspection Neurological: lethargic, nl mental status Results/Medications Result Diagram: 12/07/16 0525 12/04/16 1010 Results 24 hrs Laboratory Tests Test 12/07/16 05:25 White Blood Count 9.5 # Red Blood Count 3.60 L Hemoglobin 11.3 L Hematocrit 32.8 L Mean Corpuscular Volume 91.1 Mean Corpuscular Hemoglobin 31.4 Mean Corpuscular Hemoglobin Concent 34.5 Red Cell Distribution Width 12.6 Platelet Count 248 Mean Platelet Volume 10.2 Neutrophils % 76.1 Lymphocytes % 14.9 L Monocytes % 6.9 Eosinophils % 1.1 Basophils % 0.3 Nucleated Red Blood Cells % 0.0 Neutrophils # 7.2 Lymphocytes # 1.4 Monocytes # 0.7 Eosinophils # 0.1 Basophils # 0.0 Nucleated Red Blood Cells # 0.0 Medications Current Medications Pyridoxine HCl (Vitamin B6) 50 mg DAILY PO Last administered on 12/07/16 09:14 ; Admin Dose 50 MG; Start 12/04/16 at 09:00 Acetaminophen (Tylenol Tab) 650 mg Q6H PRN PO PAIN AND OR ELEVATED TEMP Last administered on 12/05/16 20:26; Admin Dose 650 MG; Start 12/05/16 at 05:00 Metoclopramide HCl (Reglan) 10 mg Q8H PRN IV NAUSEA Last administered on 12:38; Admin Dose 10 MG; Start 12/05/16 at 05:00 Famotidine (Pepcid Iv) 20 mg BID IV Last administered on 12/07/16 09:14; Admin Dose 20 MG; Start 12/05/16 at 21:00 Diphenhydramine HCl 25 mg 25 mg HS PRN IV SLEEP Last administered on 12/06/16 21:06; Admin Dose 25 MG; Start 12/05/16 at 19:00 Ondansetron HCl 8 mg/Sodium Chloride 54 ml @ 216 mls/hr Q6 IV Last administered on 12/07/16 18:28; Admin Dose 216 MLS/HR; Start 12/05/16 at 20:00 Dextrose/Lactated Ringer's 1,000 ml @ 125 mls/hr Q8H IV Last administered on 09:23; Admin Dose 125 MLS/HR; Start 12/05/16 at 19:00 Ondansetron HCl/ Sodium Chloride (Zofran Inj/NS) 54 ml @ 216 mls/hr Q6H PRN IV NAUSEA AND/OR VOMITING Last administered on 12/06/16 06:55; Admin Dose 216 MLS/HR; Start 12/05/16 at 22:00 Guaifenesin/ Dextromethorphan 10 ml 10 ml Q6H PRN PO COUGH Last administered on 12/07/16 18:31; Admin Dose 10 ML; Start 12/06/16 at 11:30 Ceftriaxone Sodium (Rocephin) 50 ml @ 100 mls/hr Q24H IVPB Last administered on 12/07/16 17:14; Admin Dose 100 MLS/HR; Start 12/06/16 at 17:00 Assessment/Plan Chief Complaint/Hosp Course A/P: 31 -year-old female with intrauterine at 13 weeks and 1 day who was admitted for hyperemesis gravidarum for whom we are consulted to assist in management because of chronically elevated liver enzymes. 1. Chronically elevated transaminases 2/2 chronic liver damage for which r/o underlying cirrhosis secondary to heavy alcohol use in the past and fatty liver 2. UTI Discussion: Patient's right upper quadrant ultrasound shows fatty liver with sludge in the gallbladder without evidence of gallstones or cholecystitis. The patient also has a history of heavy alcohol use but she assured hospitalist yesterday that she has quit completely. Fatty liver is a known cause of elevated liver enzymes and transaminitis and recommendations are for a low-fat low-cholesterol diet and lifestyle changes to include exercise, absolutely no alcohol and weight loss. As patient has no evidence of cholecystitis, hyperbilirubinemia or gallstones, no further workup is indicated at this time. She will benefit from serial monitoring of her liver enzymes to ensure they stay stable. Chronic hepatitis and dyslipidemia panels are back and are essentially negative - no further intervention is required. For her urinary tract infection continue abx Will sign off for now. Re consult if needed, thanks. Problems: CHERELLE MAR. Dec 07, 2016 19:06
[2016-12-07] MEDS: DIPHENHYDRAMINE 50 MG INJ IV PRN (22:02)
[2016-12-07 22:20] VITALS: BP 104/56; RESP 20
[2016-12-08] MEDS: ONDANSETRON INJ 8 MG in SOD CHLORIDE 0.9% 50 ML IV SCH ×4 (00:07→17:29)
[2016-12-08] MEDS: DEXTROSE 5%-LR 1,000 ML IV SCH ×3 (03:00→13:35)
[2016-12-08] MEDS: PYRIDOXINE 50 MG TAB PO SCH (08:38)
[2016-12-08] MEDS: FAMOTIDINE 20 MG INJ IV SCH ×2 (08:38→20:19)
[2016-12-08 08:41] VITALS: BP 92/53; RESP 20
[2016-12-08] MEDS: GUAIFENESIN/DM 5ML CUP PO PRN ×2 (10:16→19:01)
--- NOTE | 2016-12-08 14:47 | QN ---
Documentation Comment 13+wks GA with hyperemesis Gravidarum Currently is fine toleraretes fluids. Vs stable Gen NAD Abd soft NT ND --->advance diet as tolertes --->po Hydration --->JEANETH Trevino M.D. Dec 08, 2016 14:47
[2016-12-08] MEDS: CEFTRIAXONE 1 GM/50 ML (PMX) 50 ML IVPB SCH (16:05)
[2016-12-08] MEDS: DIPHENHYDRAMINE 50 MG INJ IV PRN (22:02)
[2016-12-08 22:14] VITALS: BP 100/56; RESP 19
[2016-12-09] MEDS: ONDANSETRON INJ 8 MG in SOD CHLORIDE 0.9% 50 ML IV SCH ×5 (00:22→23:45)
[2016-12-09] MEDS: DEXTROSE 5%-LR 1,000 ML IV SCH ×4 (03:00→20:43)
[2016-12-09 08:00] VITALS: BP 107/66; RESP 18
[2016-12-09] MEDS: FAMOTIDINE 20 MG INJ IV SCH ×2 (08:32→20:43)
[2016-12-09] MEDS: PYRIDOXINE 50 MG TAB PO SCH (08:32)
[2016-12-09] MEDS: GUAIFENESIN/DM 5ML CUP PO PRN ×2 (08:38→17:30)
[2016-12-09] MEDS: CEFTRIAXONE 1 GM/50 ML (PMX) 50 ML IVPB SCH (16:15)
[2016-12-09 21:08] VITALS: BP 103/58; RESP 18
--- NOTE | 2016-12-09 23:07 | QN ---
Documentation Comment Patient stll complains of nausea. Can tolerate small amount of meals. Had some Epigastic pain that improved with pepcid. Receiving Zofran. Denies any RUQ pain. Denies any history of thyroid problems or any symptoms. LFT reviewed trending up US of the RUQ, biliary sludge OB us : [place] Assessmen: Hyperemesis gravidurum. 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
[2016-12-09] MEDS: DIPHENHYDRAMINE 50 MG INJ IV PRN (23:53)
[2016-12-10] MEDS: ONDANSETRON INJ 8 MG in SOD CHLORIDE 0.9% 50 ML IV SCH ×4 (05:18→23:38)
[2016-12-10] MEDS: DEXTROSE 5%-LR 1,000 ML IV SCH ×2 (05:18→15:44)
[2016-12-10 08:00] VITALS: BP 106/62; RESP 18
[2016-12-10] MEDS: FAMOTIDINE 20 MG INJ IV SCH ×2 (09:52→20:24)
[2016-12-10] MEDS: PYRIDOXINE 50 MG TAB PO SCH (09:52)
[2016-12-10] MEDS: GUAIFENESIN/DM 5ML CUP PO PRN ×2 (10:00→20:28)
--- NOTE | 2016-12-10 13:17 | QN ---
Documentation Comment December 10, 2016 Hospital visit This patient is a 31 years old 2 para 0 who was admitted in the hospital on the due to nausea and vomiting with diagnosis of hyperemesis gravidarum and possible fatty liver disease. Ultrasound study showed fatty liver and sludge in the gallbladder without evidence of gallstones or cholecystitis. This patient has history of heavy alcohol consumption but apparently recently is not drinking that much she has an elevated transaminase which is typical of chronic alcohol use and fatty liver. Liver enzymes not elevated and no hyperbilirubinemia Laboratory Tests Test 12/10/16 04:25 Thyroid Stimulating Hormone (TSH) 0.132MIU/L Hepatitis B Surface Antigen NEGATIVE Hepatitis C Antibody NEGATIVE Current Medications Medications (Trade) Dose Ordered Sig/Masood Route PRN Reason Start Time Stop Time Status Last Admin Dose Admin Sodium Chloride (NS) 1,000 ml @ 1,000 mls/hr Q1H ONCE IV 12/03/16 11:30 12/03/16 12:29 DC 12/03/16 11:44 Famotidine (Pepcid Iv) 20 mg ONCE ONCE IV 12/03/16 11:30 12/03/16 11:35 DC 12/03/16 11:44 Metoclopramide HCl (Reglan) 10 mg ONCE ONCE IV 12/03/16 11:30 12/03/16 11:35 DC 12/03/16 11:44 Diphenhydramine HCl 25 mg 25 mg ONCE ONCE IV 12/03/16 11:30 12/03/16 11:35 DC 12/03/16 11:44 Ceftriaxone Sodium (Rocephin) 50 ml @ 100 mls/hr ONCE ONCE IVPB 12/03/16 13:30 12/03/16 13:59 DC 12/03/16 13:38 Potassium Chloride (Klor-Con 20) 40 meq ONCE STAT PO 12/03/16 13:19 12/03/16 13:20 DC 12/03/16 13:38 Ondansetron HCl (Zofran Inj) 4 mg BRIDGE ORDER PRN IV NAUSEA AND/OR VOMITING 12/03/16 14:30 12/03/16 20:44 DC 12/03/16 15:51 Acetaminophen (Tylenol Tab) 650 mg ER BRIDGE PRN PO MILD PAIN/FEVER 12/03/16 14:30 12/03/16 20:44 DC Ipratropium [place] (Atrovent 0.02% (Neb)) 0.5 mg STK-MED ONCE .ROUTE 12/03/16 14:07 12/03/16 14:08 DC Albuterol 2.5 mg 2.5 mg STK-MED ONCE .ROUTE 12/03/16 14:07 12/03/16 14:08 DC Lactated Ringer's (Lr) 1,000 ml @ 125 mls/hr Q8H IV 12/03/16 20:30 12/05/16 18:43 DC 12/05/16 12:38 Ondansetron HCl (Zofran Inj) 4 mg Q6H PRN IV NAUSEA AND/OR VOMITING 12/03/16 20:30 12/05/16 21:04 DC 12/05/16 08:19 Pyridoxine HCl (Vitamin B6) 50 mg DAILY PO 12/04/16 09:00 12/10/16 09:52 Acetaminophen (Tylenol Tab) 650 mg Q6H PRN PO PAIN AND OR ELEVATED TEMP 12/05/16 05:00 12/05/16 20:26 Metoclopramide HCl (Reglan) 10 mg Q8H PRN IV NAUSEA 12/05/16 05:00 12/05/16 12:38 Famotidine 20 mg 20 mg BID IV 12/05/16 21:00 12/10/16 09:52 Dextrose/Lactated Ringer's (D5-Lr) 1,000 ml @ 125 mls/hr Q8H IV 12/05/16 19:00 12/05/16 23:46 DC Diphenhydramine HCl (Benadryl) 25 mg ONCE PRN IV SLEEP 12/05/16 19:00 12/06/16 18:59 DC Diphenhydramine HCl (Benadryl) 25 mg HS PRN IV SLEEP 12/05/16 19:00 12/09/16 23:53 Ondansetron HCl 8 mg 8 mg Q6H PRN IV NAUSEA AND/OR VOMITING 12/06/16 02:30 12/06/16 02:30 DC Ondansetron HCl/ Sodium Chloride (Zofran Inj/NS) 54 ml @ 216 mls/hr Q6 IV 12/05/16 20:00 12/10/16 05:18 Famotidine 20 mg 20 mg BID IV 12/05/16 21:00 12/05/16 23:46 DC Dextrose/Lactated Ringer's 1,000 ml @ 125 mls/hr Q8H IV 12/05/16 19:00 12/10/16 05:18 Ondansetron HCl/ Sodium Chloride (Zofran Inj/NS) 54 ml @ 216 mls/hr Q6H PRN IV NAUSEA AND/OR VOMITING 12/05/16 22:00 12/06/16 06:55 Guaifenesin/ Dextromethorphan 10 ml 10 ml Q6H PRN PO COUGH 12/06/16 11:30 12/10/16 10:00 Ceftriaxone Sodium (Rocephin) 50 ml @ 100 mls/hr Q24H IVPB 12/06/16 17:00 12/09/16 16:15 Today she is feeling better ,no vomiting last night, she did vomit today . she is on Zofran IV infusion every 8 hours. The lab works that was ordered today are basically normal and her TSH and hepatitis B surface antigen and hepatitis C antibody are both negative. We will arrange to heart tone to be checked at least once a day. If he continues to improve she may be able to be might be able to be discharged home tomorrow or day after End of dictation BETTIE BOUDREAUX MD Dec 10, 2016 12:36 BETTIE BOUDREAUX MD Dec 10, 2016 12:36
[2016-12-10] MEDS: CEFTRIAXONE 1 GM/50 ML (PMX) 50 ML IVPB SCH (17:35)
[2016-12-10 20:47] VITALS: BP 93/54; RESP 18
[2016-12-10] MEDS: DIPHENHYDRAMINE 50 MG INJ IV PRN (21:54)
[2016-12-11] MEDS: DEXTROSE 5%-LR 1,000 ML IV SCH ×3 (01:17→19:26)
[2016-12-11] MEDS: ONDANSETRON INJ 8 MG in SOD CHLORIDE 0.9% 50 ML IV SCH ×3 (06:03→17:48)
[2016-12-11 08:00] VITALS: BP_SYST 100; BP_DIAS 51; BP_DIAS 57; RESP 18
[2016-12-11] MEDS: PYRIDOXINE 50 MG TAB PO SCH (08:33)
[2016-12-11] MEDS: GUAIFENESIN/DM 5ML CUP PO PRN (08:33)
[2016-12-11] MEDS: FAMOTIDINE 20 MG INJ IV SCH ×2 (08:33→21:47)
--- NOTE | 2016-12-11 11:50 | PN ---
Date/Time of Note Date/Time of Note DATE: 12/11/16 TIME: 11:46 Assessment/Plan VTE Prophylaxis VTE Prophylaxis Intervention: ambulation Lines/Catheters IV Catheter Type (from Nrs): Peripheral IV Urinary Cath still in place: No Assessment/Plan Assessment/Plan 31 y/o P0 at 15 weeks admitted for hyperemesis -add Reglan -await GI consult -consider perinatology consult -continue inpatient care Subjective 24 Hr Interval Summary Free Text/Dictation Patient was feeling better, but vomited again this morning. Currently on IV Zofran. Reports reglan helped as outpatient. Awaiting GI consult. Exam/Review of Systems Vital Signs Vitals Vital Signs Date Time Temp Pulse Resp B/P Pulse Ox O2 Delivery O2 Flow Rate FiO2 12/11/16 08:00 98.8 72 18 100/51 96 Intake and Output 12/10/16 12/10/16 12/11/16 14:59 22:59 06:59 Intake Total 54 ml 2189 ml 1775.5 ml Balance 54 ml 2189 ml 1775.5 ml Exam Gen: NAD Abd: soft, NT Results Result Diagram: 12/07/16 0525 Medications Medications Current Medications Pyridoxine HCl (Vitamin B6) 50 mg DAILY PO Last administered on 12/11/16 08:33 ; Admin Dose 50 MG; Start 12/04/16 at 09:00 Acetaminophen (Tylenol Tab) 650 mg Q6H PRN PO PAIN AND OR ELEVATED TEMP Last administered on 12/05/16 20:26; Admin Dose 650 MG; Start 12/05/16 at 05:00 Metoclopramide HCl (Reglan) 10 mg Q8H PRN IV NAUSEA Last administered on 12:38; Admin Dose 10 MG; Start 12/05/16 at 05:00 Famotidine (Pepcid Iv) 20 mg BID IV Last administered on 12/11/16 08:33; Admin Dose 20 MG; Start 12/05/16 at 21:00 Diphenhydramine HCl 25 mg 25 mg HS PRN IV SLEEP Last administered on 12/10/16 21:54; Admin Dose 25 MG; Start 12/05/16 at 19:00 Ondansetron HCl 8 mg/Sodium Chloride 54 ml @ 216 mls/hr Q6 IV Last administered on 12/11/16 06:03; Admin Dose 216 MLS/HR; Start 12/05/16 at 20:00 Dextrose/Lactated Ringer's 1,000 ml @ 125 mls/hr Q8H IV Last administered on 09:39; Admin Dose 125 MLS/HR; Start 12/05/16 at 19:00 Ondansetron HCl/ Sodium Chloride (Zofran Inj/NS) 54 ml @ 216 mls/hr Q6H PRN IV NAUSEA AND/OR VOMITING Last administered on 12/06/16 06:55; Admin Dose 216 MLS/HR; Start 12/05/16 at 22:00 Guaifenesin/ Dextromethorphan 10 ml 10 ml Q6H PRN PO COUGH Last administered on 12/11/16 08:33; Admin Dose 10 ML; Start 12/06/16 at 11:30 Ceftriaxone Sodium (Rocephin) 50 ml @ 100 mls/hr Q24H IVPB Last administered on 12/10/16 17:35; Admin Dose 100 MLS/HR; Start 12/06/16 at 17:00 GENE CELESTIN Dec 11, 2016 11:50
[2016-12-11] MEDS: METOCLOPRAMIDE 10 MG INJ IV SCH ×2 (12:29→17:48)
[2016-12-11] MEDS: CEFTRIAXONE 1 GM/50 ML (PMX) 50 ML IVPB SCH (16:59)
[2016-12-11 20:00] VITALS: BP 89/54; RESP 19
[2016-12-11] MEDS: DIPHENHYDRAMINE 50 MG INJ IV PRN (22:32)
[2016-12-12] MEDS: METOCLOPRAMIDE 10 MG INJ IV SCH ×4 (00:47→17:31)
[2016-12-12] MEDS: ONDANSETRON INJ 8 MG in SOD CHLORIDE 0.9% 50 ML IV SCH ×4 (00:47→18:25)
[2016-12-12] MEDS: DEXTROSE 5%-LR 1,000 ML IV SCH ×3 (03:00→18:25)
[2016-12-12 08:00] VITALS: BP 90/55; PULSE 64; RESP 16
[2016-12-12] MEDS: FAMOTIDINE 20 MG INJ IV SCH ×2 (09:48→22:03)
[2016-12-12] MEDS: PYRIDOXINE 50 MG TAB PO SCH (09:48)
--- NOTE | 2016-12-12 14:16 | QN ---
Documentation Comment 14+wks GA with hyperemesis Gravidarum Currently is fine tolerates fluids. Vs stable Gen NAD Abd soft NT ND --->advance diet as tolertes --->po Hydration --->heplock --->discharge plan tomorrow JEANETH DELGADO M.D. Dec 12, 2016 14:16
[2016-12-12] MEDS: CEFTRIAXONE 1 GM/50 ML (PMX) 50 ML IVPB SCH (17:31)
[2016-12-12 21:12] VITALS: BP 109/65; RESP 17
[2016-12-12] MEDS: DIPHENHYDRAMINE 50 MG INJ IV PRN (22:03)
[2016-12-13] MEDS: ONDANSETRON INJ 8 MG in SOD CHLORIDE 0.9% 50 ML IV SCH ×5 (00:23→23:47)
[2016-12-13] MEDS: METOCLOPRAMIDE 10 MG INJ IV SCH ×5 (00:23→23:47)
[2016-12-13] MEDS: DEXTROSE 5%-LR 1,000 ML IV SCH ×4 (05:25→23:52)
[2016-12-13 07:52] VITALS: BP 98/57; RESP 18
[2016-12-13] MEDS: FAMOTIDINE 20 MG INJ IV SCH ×2 (08:40→20:51)
[2016-12-13] MEDS: PYRIDOXINE 50 MG TAB PO SCH (08:40)
--- NOTE | 2016-12-13 17:00 | QN ---
Documentation Comment iup 15 weeks hyperemesis imroving vss exam wnl +fht12/12 a/p iup 15-16 weeks hyperemis rpt labs am prob dc home JONEL Angelo MD Dec 13, 2016 17:00
[2016-12-13] MEDS: CEFTRIAXONE 1 GM/50 ML (PMX) 50 ML IVPB SCH (17:49)
[2016-12-13 20:11] VITALS: BP 92/52; RESP 18
[2016-12-13] MEDS: DIPHENHYDRAMINE 50 MG INJ IV PRN (20:51)
[2016-12-13] MEDS ORDERED: DOCUSATE SODIUM 100 MG CAP PO PRN (21:30)
[2016-12-14 05:18] LABS: ADD SCAN DIFF NO
[2016-12-14] MEDS: ONDANSETRON INJ 8 MG in SOD CHLORIDE 0.9% 50 ML IV SCH ×2 (05:22→11:44)
[2016-12-14] MEDS: METOCLOPRAMIDE 10 MG INJ IV SCH ×2 (05:22→11:44)
[2016-12-14 05:33] LABS: BASOPHILS % 0.3 % (0.0-2.0); EOSINOPHILS # 0.2 10^3/ul (0.0-0.5); EOSINOPHILS % 2.1 % (0.0-7.0); HEMATOCRIT 32.2 % (37.0-47.0); HEMOGLOBIN 11.2 g/dl (12.0-16.0); LYMPHOCYTES # 2.2 10^3/ul (0.8-2.9); MEAN CORPUSCULAR HEMOGLOBIN 31.6 pg (29.0-33.0); MEAN CORPUSCULAR HGB CONC 34.8 g/dl (32.0-37.0); MEAN PLATELET VOLUME 9.9 fl (7.4-10.4); MONOCYTE # 0.7 10^3/ul (0.3-0.9); MONOCYTES % 6.3 % (0.0-11.0); NEUTROPHIL # 7.9 10^3/ul (1.6-7.5); NEUTROPHILS % 70.4 % (39.0-77.0); PLATELET COUNT 288 10^3/UL (140-415); RED BLOOD COUNT 3.54 10^6/ul (4.20-5.40); RED CELL DISTRIBUTION WIDTH 12.6 % (11.5-14.5); WHITE BLOOD COUNT 11.2 10^3/ul (4.8-10.8)
[2016-12-14 05:50] LABS: ALBUMIN 3.3 g/dl (3.3-4.9); ALBUMIN/GLOBULIN RATIO 1.26; BILIRUBIN,INDIRECT 0.2 mg/dl (0-1.1); BILIRUBIN,TOTAL 0.2 mg/dl (0.2-1.3); CREATININE 0.6 mg/dl (0.44-1.00); POTASSIUM 3.7 mmol/L (3.5-5.1); TOTAL PROTEIN 5.9 g/dl (6.1-8.1)
[2016-12-14 08:18] VITALS: BP 93/54; RESP 18
[2016-12-14] MEDS: FAMOTIDINE 20 MG INJ IV SCH (09:07)
[2016-12-14] MEDS: PYRIDOXINE 50 MG TAB PO SCH (09:07)
[2016-12-14] MEDS: DEXTROSE 5%-LR 1,000 ML IV SCH ×2 (09:07→11:00)
--- NOTE | 2016-12-14 16:04 | DS ---
Date/Time of Note Date/Time of Note DATE: 12/14/16 TIME: 16:01 Discharge Summary Admission/Discharge Info Admit Date/Time Dec 03, 2016 at 14:06 Discharge Date/Time 12/14/16 Discharge Diagnosis iup 15 weeks hyperemsis-resolving Hx of Present Illness pt presented with N?V and Dx of hyperemesis. pt admitted for antiemetics and ivf. with elevated LFT but on day of DC all labs are WNl. hepatitis and Ft4 wnl. pt doing well tolerating po and minimal naseua. Hospital Course A/P: 31 -year-old female with intrauterine at 13 weeks and 1 day who was admitted for hyperemesis gravidarum for whom we are consulted to assist in management because of chronically elevated liver enzymes. 1. Chronically elevated transaminases 2/2 chronic liver damage for which r/o underlying cirrhosis secondary to heavy alcohol use in the past and fatty liver 2. UTI Discussion: Patient's right upper quadrant ultrasound shows fatty liver with sludge in the gallbladder without evidence of gallstones or cholecystitis. The patient also has a history of heavy alcohol use but she assured hospitalist yesterday that she has quit completely. Fatty liver is a known cause of elevated liver enzymes and transaminitis and recommendations are for a low-fat low-cholesterol diet and lifestyle changes to include exercise, absolutely no alcohol and weight loss. As patient has no evidence of cholecystitis, hyperbilirubinemia or gallstones, no further workup is indicated at this time. She will benefit from serial monitoring of her liver enzymes to ensure they stay stable. Chronic hepatitis and dyslipidemia panels are back and are essentially negative - no further intervention is required. For her urinary tract infection continue abx Will sign off for now. Re consult if needed, thanks. Home Meds Active Scripts Metoclopramide Hcl* (Metoclopramide Hcl*) 5 Mg Tablet, 5 MG PO Q6 Y for nausea for 7 Days, #20 TAB Prov:ALESSIO RIVERA MD 11/30/16 Follow-up Plan needs obgyn this week Primary Care Provider Care Physician No Primary Time spent on discharge: < 30 minutes Pending Labs Laboratory Tests Test 12/14/16 04:32 12/14/16 04:35 White Blood Count 11.210^3/ul (4.8-10.8) Red Blood Count 3.5410^6/ul (4.20-5.40) Hemoglobin 11.2g/dl (12.0-16.0) Hematocrit 32.2% (37.0-47.0) Mean Corpuscular Volume 91.0fl (82.0-101.0) Mean Corpuscular Hemoglobin 31.6pg (29.0-33.0) Mean Corpuscular Hemoglobin Concent 34.8g/dl (32.0-37.0) Red Cell Distribution Width 12.6% (11.5-14.5) Platelet Count 62959^3/UL (140-415) Mean Platelet Volume 9.9fl (7.4-10.4) Neutrophils % 70.4% (39.0-77.0) Lymphocytes % 20.0% (15.0-51.0) Monocytes % 6.3% (0.0-11.0) Eosinophils % 2.1% (0.0-7.0) Basophils % 0.3% (0.0-2.0) Nucleated Red Blood Cells % 0.0/100WBC (0.0-0.0) Neutrophils # 7.910^3/ul (1.6-7.5) Lymphocytes # 2.210^3/ul (0.8-2.9) Monocytes # 0.710^3/ul (0.3-0.9) Eosinophils # 0.210^3/ul (0.0-0.5) Basophils # 0.010^3/ul (0.0-0.1) Nucleated Red Blood Cells # 0.010^3/ul (0.0-0.0) Sodium Level 138mmol/L (135-144) Potassium Level 3.7mmol/L (3.5-5.1) Chloride Level 104mmol/L (97-110) Carbon Dioxide Level 25mmol/L (21-31) Anion Gap 13 (8-16) Blood Urea Nitrogen 4mg/dl (7-20) Creatinine 0.60mg/dl (0.44-1.00) Glucose Level 89mg/dl (70-220) Calcium Level 9.0mg/dl (8.4-10.2) Total Bilirubin 0.2mg/dl (0.2-1.3) Direct Bilirubin 0.00mg/dl (0.00-0.20) Indirect Bilirubin 0.2mg/dl (0-1.1) Aspartate Amino Transf (AST/SGOT) 27IU/L (15-46) Alanine Aminotransferase (ALT/SGPT) 65IU/L (13-69) Alkaline Phosphatase 75IU/L (42-121) Total Protein 5.9g/dl (6.1-8.1) Albumin 3.3g/dl (3.3-4.9) Globulin 2.60g/dl (1.3-3.2) Albumin/Globulin Ratio 1.26 Free Thyroxine 0.80ng/dl (0.79-2.35) JONEL POLANCO MD Dec 14, 2016 16:04
== END 2016-12-14 17:57 | disposition home or self-care (01) | DRG 781 ==
LOC: FTE 10:52 → PP2 14:06
PROVIDERS: ADMIT Obstetrics & Gynecology Gynecology; ATTEND Obstetrics & Gynecology Gynecology
DX: O21.0 Mild hyperemesis gravidarum (principal); K70.30 Alcoholic cirrhosis of liver without ascites; O23.41 Unspecified infection of urinary tract in pregnancy, first trimester; Z3A.13 13 weeks gestation of pregnancy; K82.8 Other specified diseases of gallbladder
CPT/HCPCS: 36415; 76705; 76801; 80053; 80061; 80076; 81001; 83690; 84439; 84443; 84450; 84460; 84702; 85025; 86704; 86706; 86709; 86803; 86900; 86901; 87086; 87340; 96374; 96375; J0696; J1200; J2405; J2765; J7030; J7120; J7121

== ENCOUNTER 2016-12-28 18:10 | Inpatient (IN) | payer MEDICAID ==
[~2016-12-28] VITALS: Ht 165.1 cm; Wt 65.5 kg
[~2016-12-28 18:10] MED LIST changes: -ONDA-43 PO
[2016-12-28] MEDS ORDERED: SOD CHLORIDE 0.9% 1,000 ML IV STA (20:10)
[2016-12-28] MEDS ORDERED: ONDANSETRON 4 MG INJ IV STA (20:10)
[2016-12-28 20:41] LABS: ADD SCAN DIFF NO
[2016-12-28 20:43] LABS: BASOPHIL # 0.1 10^3/ul (0.0-0.1); BASOPHILS % 0.5 % (0.0-2.0); EOSINOPHILS % 0.2 % (0.0-7.0); HEMATOCRIT 38.1 % (37.0-47.0); HEMOGLOBIN 14.1 g/dl (12.0-16.0); LYMPHOCYTES # 1.9 10^3/ul (0.8-2.9); LYMPHOCYTES % 13.4 % (15.0-51.0); MEAN CORPUSCULAR HEMOGLOBIN 32.7 pg (29.0-33.0); MEAN CORPUSCULAR VOLUME 88.4 fl (82.0-101.0); MEAN PLATELET VOLUME 10.2 fl (7.4-10.4); MONOCYTE # 0.9 10^3/ul (0.3-0.9); MONOCYTES % 6.1 % (0.0-11.0); NEUTROPHIL # 11.2 10^3/ul (1.6-7.5); NEUTROPHILS % 79.2 % (39.0-77.0); PLATELET COUNT 380 10^3/UL (140-415); RED BLOOD COUNT 4.31 10^6/ul (4.20-5.40); RED CELL DISTRIBUTION WIDTH 12.8 % (11.5-14.5); WHITE BLOOD COUNT 14.2 10^3/ul (4.8-10.8)
[2016-12-28 21:13] LABS: ALBUMIN 4.9 g/dl (3.3-4.9); ALBUMIN/GLOBULIN RATIO 1.22; BILIRUBIN,INDIRECT 0.5 mg/dl (0-1.1); BILIRUBIN,TOTAL 0.5 mg/dl (0.2-1.3); CALCIUM 10.5 mg/dl (8.4-10.2); CREATININE 0.63 mg/dl (0.44-1.00); POTASSIUM 3.1 mmol/L (3.5-5.1); TOTAL PROTEIN 8.9 g/dl (6.1-8.1)
[2016-12-28 21:58] LABS: ADD UMIC YES; UR ASCORBIC ACID NEGATIVE (NEGATIVE); UR BILIRUBIN (Dip) NEGATIVE (NEGATIVE); UR BLOOD (Dip) NEGATIVE (NEGATIVE); UR CLARITY CLEAR (CLEAR); UR COLOR STRAW (YELLOW); UR GLUCOSE (Dip) NEGATIVE (NEGATIVE); UR KETONES (Dip) TRACE mg/dL (NEGATIVE); UR LEUKOCYTE ESTERASE (Dip) 1+ Leu/ul (NEGATIVE); UR NITRITE (Dip) NEGATIVE (NEGATIVE); UR RBC 0 /HPF (0-5); UR SPECIFIC GRAVITY (Dip) 1.006 (1.003-1.030); UR SQUAMOUS EPITHELIAL CELL FEW /HPF (FEW); UR TOTAL PROTEIN (Dip) NEGATIVE (NEGATIVE); UR UROBILINOGEN (Dip) NEGATIVE (NEGATIVE)
[2016-12-28] MEDS ORDERED: POTASSIUM CHLORIDE (SR) 20 MEQ TAB PO STA (22:11)
--- NOTE | 2016-12-28 22:14 | ERA ---
ER Documentation Chief Complaint Date/Time DATE: 12/28/16 TIME: 22:09 Chief Complaint Pt with severe vomiting X 3 days 18 weeks . HPI 31-year-old woman 18 weeks by previously confirmed normal ultrasound complains of multiple episodes of clear nonbloody nonbilious emesis. She was admitted recently for hyperemesis. He denies diarrhea, no fevers or chills, no loss of consciousness, no pelvic cramping or vaginal bleeding. ROS All systems reviewed and are negative except as per history of present illness. Medications Home Meds Active Scripts Metoclopramide Hcl* (Metoclopramide Hcl*) 5 Mg Tablet, 5 MG PO Q6 Y for nausea for 7 Days, #20 TAB Prov:ALESSIO RIVERA MD 11/30/16 Allergies Allergies: Coded Allergies: No Known Allergy (Unverified , 12/03/16) verified PMhx/Soc History of Surgery: Yes (left lateral release of the patella 2011) Anesthesia Reaction: No Hx Neurological Disorder: No Hx Respiratory Disorders: No Hx Cardiac Disorders: No Hx Psychiatric Problems: No Hx Miscellaneous Medical Probl: No Hx Alcohol Use: No Hx Substance Use: No Hx Tobacco Use: Yes Smoking Status: Former smoker FmHx Family History: No diabetes Physical Exam Vitals Vital Signs Date Time Temp Pulse Resp B/P Pulse Ox O2 Delivery O2 Flow Rate FiO2 12/28/16 18:17 97.9 114 20 106/73 97 Physical Exam GENERAL: Well-developed, well-nourished, dehydrated, nauseous HEENT: Dry mucous membranes, pink conjunctiva, no cervical spine tenderness or step-off deformities, no goiter, no jaundice or icterus, extraocular movements intact without pain. No submandibular induration, and no pharyngeal erythema NEURO: Alert and oriented 3, cranial nerves II through XII intact bilaterally, pupils equal round reactive to light, no focal deficits or facial asymmetry, sensation intact distally Strength 5/5 in upper and lower extremities bilaterally CARDIAC: Regular rate and rhythm, no murmurs rubs or gallops LUNGS: Clear bilaterally no wheezing crackles or stridor ABDOMEN: Soft nontender, no guarding, no rigidity, no rebound, no psoas sign no obturator sign. Normoactive bowel sounds SKIN: Warm and dry to touch, no abrasions, contusions, or hematomas, no lacerations, no ecchymosis, no target lesions, and without ulcers EXTREMITIES: No clubbing cyanosis or edema, calves are bilaterally symmetrical, no Homans sign, no popliteal cord sign. Distal pulses equal and bilateral PSYCH: Normal affect without agitation or irritability Result Diagram: 12/28/16202912/28/162029 Results 24 hrs Laboratory Tests Test 12/28/16 20:30 12/28/16 21:15 White Blood Count 14.210^3/ul Red Blood Count 4.3110^6/ul Hemoglobin 14.1g/dl Hematocrit 38.1% Mean Corpuscular Volume 88.4fl Mean Corpuscular Hemoglobin 32.7pg Mean Corpuscular Hemoglobin Concent 37.0g/dl Red Cell Distribution Width 12.8% Platelet Count 74271^3/UL Mean Platelet Volume 10.2fl Neutrophils % 79.2% Lymphocytes % 13.4% Monocytes % 6.1% Eosinophils % 0.2% Basophils % 0.5% Nucleated Red Blood Cells % 0.0/100WBC Neutrophils # 11.210^3/ul Lymphocytes # 1.910^3/ul Monocytes # 0.910^3/ul Eosinophils # 0.010^3/ul Basophils # 0.110^3/ul Nucleated Red Blood Cells # 0.010^3/ul Sodium Level 140mmol/L Potassium Level 3.1mmol/L Chloride Level 97mmol/L Carbon Dioxide Level 24mmol/L Anion Gap 22 Blood Urea Nitrogen 10mg/dl Creatinine 0.63mg/dl Glucose Level 85mg/dl Calcium Level 10.5mg/dl Total Bilirubin 0.5mg/dl Direct Bilirubin 0.00mg/dl Indirect Bilirubin 0.5mg/dl Aspartate Amino Transf (AST/SGOT) 117IU/L Alanine Aminotransferase (ALT/SGPT) 243IU/L Alkaline Phosphatase 124IU/L Total Protein 8.9g/dl Albumin 4.9g/dl Globulin 4.00g/dl Albumin/Globulin Ratio 1.22 Lipase 89U/L Beta HCG, Quantitative 76788.0mIU/ml Urine Color STRAW Urine Clarity CLEAR Urine pH 8.0 Urine Specific [place] 1.006 Urine Ketones TRACEmg/dL Urine Nitrite NEGATIVEmg/dL Urine Bilirubin NEGATIVEmg/dL Urine Urobilinogen NEGATIVEmg/dL Urine Leukocyte Esterase 1+Hira/ul Urine Microscopic RBC 0/HPF Urine Microscopic WBC 6/HPF Urine Squamous Epithelial Cells FEW/HPF Urine Hemoglobin NEGATIVEmg/dL Urine Glucose NEGATIVEmg/dL Urine Total Protein NEGATIVEmg/dl Current Medications Medications (Trade) Dose Ordered Sig/Masood Route PRN Reason Start Time Stop Time Status Last Admin Dose Admin Sodium Chloride (NS) 1,000 ml @ 2,000 mls/hr Q30M STAT IV 12/28/16 20:10 12/28/16 20:39 DC 12/28/16 20:42 Ondansetron HCl (Zofran Inj) 4 mg ONCE STAT IV 12/28/16 20:10 12/28/16 20:12 DC 12/28/16 20:42 Procedures/MDM IV line was established 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 Patient was afebrile. I administered 2 L normal saline intravenously for dehydration Zofran 4 mg IV. CBC revealed a leukocytosis of 14, electrolytes revealed hypokalemia 3.1, liver function tests were elevated with acute transaminitis and AST/ALT at 117/243, alkaline phosphatase elevated at 124. Urine analysis unremarkable. I administered potassium supplementation for acute hypokalemia. Departure Diagnosis: Primary Impression: Dehydration Additional Impressions: Hyperemesis Qualified Code: R11.2 - Intractable vomiting with nausea, unspecified vomiting type Transaminitis Acute hypokalemia Condition: VIET Messina MD Dec 28, 2016 22:14
[2016-12-28] MEDS ORDERED: SOD CHLORIDE 0.9% 1,000 ML IV ONE (23:00)
[2016-12-28] MEDS ORDERED: METOCLOPRAMIDE 10 MG INJ IV ONE (23:00)
[2016-12-28] MEDS: CEFTRIAXONE 1 GM/50 ML (PMX) 50 ML IVPB SCH (23:30)
[2016-12-28] MEDS ORDERED: FAMO20TA18 PO (23:34)
[2016-12-28] MEDS ORDERED: DIPH25CA6 PO (23:34)
[2016-12-29] MEDS ORDERED: NACL 0.9% 3 ML SYG IV SCH (01:00)
[2016-12-29] MEDS ORDERED: METOCLOPRAMIDE 10 MG INJ IV PRN (01:00)
[2016-12-29] MEDS ORDERED: ONDANSETRON 4 MG INJ IV STA (01:27)
[2016-12-29] MEDS ORDERED: ONDANSETRON INJ 8 MG in SOD CHLORIDE 0.9% 50 ML IV ONE (02:00)
[2016-12-29 02:35] VITALS: Ht 165.1 cm; Wt 65.5 kg
[2016-12-29 02:45] VITALS: BP 99/62; RESP 16
[2016-12-29] MEDS: SOD CHLORIDE 0.9% 1,000 ML IV SCH ×3 (02:57→16:36)
[2016-12-29] MEDS ORDERED: PANTOPRAZOLE 40 MG INJ IV SCH (06:00)
--- NOTE | 2016-12-29 06:08 | HP ---
Date/Time of Note Date/Time of Note DATE: 12/29/16 TIME: 06:06 Assessment/Plan VTE Prophylaxis VTE Prophylaxis Intervention: SCD's Lines/Catheters [facility] IV Assessment/Plan Chief Complaint/Hosp Course This is a 31-year-old female being admitted to the [facility] floor for: #1 hyperemesis gravidarum: Patient right now is approximately 18 weeks . At the current time we will treat her with Reglan and Zofran as needed for nausea. The OB laborist was also consulted and the recommendation was also to give a banana bag. Vitamin B6 was also recommended however the patient states that this did not help her last time. Will hold off on ordering that for right now. IV fluid hydration with normal saline #2 IUP: Patient is currently approximately 18 weeks. He had a previous ultrasound during her last admission. OB has been consulted will await their recommendations for any further treatment strategy. #3 DVT and GI prophylaxis: SCDs, Protonix Further treatment strategy as per the clinical course Problems: HPI/ROS Admit Date/Time Admit Date/Time Dec 28, 2016 at 23:14 Hx of Present Illness Chief complaint: Persistent nausea vomiting This is a 31-year-old A1 woman who is 18 weeks by previously confirmed normal ultrasound complains of multiple episodes of clear nonbloody nonbilious emesis. She was admitted recently for hyperemesis. She denies diarrhea, no fevers or chills, no loss of consciousness, no pelvic cramping or vaginal bleeding. She states that previously when she was admitted Zofran and Reglan seemed to help her the most with her vomiting while vitamin B6 did not really give her much relief. Allergies: NKDA Medications: vitamins ROS Const: As per HPI Eyes : No pain discharge or redness or change in visual acuity ENT: No pain, sore throat, congestion, congestion, dysphagia or discharge Respiratory: No shortness of breath, cough, sputum, wheezing, or pleuritic pain Cardiovascular: No chest pain, palpitation, PND, or edema GI : As per HPI Genitourinary: No dysuria, hematuria, flank pain , discharge or CVA tenderness Musculoskeletal: No joint pain, back pain, neck pain, restricted range of motion in neck or joints Skin: No rash, bruising or hives Neuro: No headache, dizziness, syncope, seizure, focal weakness Endocrine: No polyuria, polydipsia, temperature intolerance Psych: No hallucination, depression, anxiety or suicidal ideation PMH/Family/Social Past Medical History Medical History: no pertinent history Past Surgical History Left patella lateral release Family History Significant Family History: no pertinent family hx Social History Alcohol Use: none Smoking Status: Never smoker Drug Use: none Exam/Review of Systems Vital Signs Vitals Vital Signs Date Time Temp Pulse Resp B/P Pulse Ox O2 Delivery O2 Flow Rate FiO2 12/29/16 02:45 98.1 73 16 99/62 100 12/29/16 01:55 Room Air Intake and Output 12/28/16 12/28/16 12/29/16 15:00 23:00 07:00 Intake Total 225 ml Balance 225 ml Exam Exam General: Patient is a pleasant female lying in bed comfortably in no acute distress HEENT: Atraumatic, normocephalic. The pupils are equal, round and reactive. Extraocular motor are intact Neck: Supple with full range of motion. No rigidity or meningismus Chest: Nontender Lungs: Clear to auscultation bilaterally no crackles rales or wheezing Heart: Normal S1-S2, Regular rhythm and rate. No murmur, S3, or S4 Abdomen: Soft, gravid Extremities: Normal to inspection, no edema no cyanosis Neurologic: Normal mental status, speech normal, cranial nerves II through XII are intact, motor and sensory are intact, no focal weakness Labs Result Diagram: 12/28/16202912/28/162029 Medications Medications Current Medications Ceftriaxone Sodium 50 ml @ 100 mls/hr Q24H IVPB Last administered on 23:30; Admin Dose 100 MLS/HR; Start 12/28/16 at 23:30 Sodium Chloride (NS) 1,000 ml @ 75 mls/hr [id number] IV Last administered on 12/29 02:57; Admin Dose 75 MLS/HR; Start 12/29/16 at 00:47 Metoclopramide HCl (Reglan) 10 mg Q6H PRN IV NAUSEA AND/OR VOMITING; Start 05/07 at 01:00 Pantoprazole (Protonix Iv) 40 mg DAILY@06 IV Last administered on 12/29/16 05: 42; Admin Dose 40 MG; Start 7/11/17 at 06:00 CARLA BARRY Dec 29, 2016 06:07
[2016-12-29 07:38] VITALS: BP 99/57; RESP 16
[2016-12-29] MEDS: ONDANSETRON 4 MG INJ IV PRN ×2 (14:28→22:24)
--- NOTE | 2016-12-29 15:27 | PN ---
Date/Time of Note Date/Time of Note DATE: 12/29/16 TIME: 15:23 Assessment/Plan VTE Prophylaxis VTE Prophylaxis Intervention: SCD's Lines/Catheters [facility] Per[facility] IV Urinary Cath still in place: No Assessment/Plan Assessment/Plan 31 yo F 18 weeks into admitted for intractable nausea/vomiting. Suspect etio hyperemesis gravidum. #HG: cont supportive care #transaminitis: repeat liver US fatty liver noted on US 2 weeks ago #: laborist called overnight, to see patient anticipate discharge in 1-2 days if nausea remains controlled Subjective 24 Hr Interval Summary Free Text/Dictation Pt states she hasn't vomited since midnight. Does not recall the name of her OB. States she was previously diagnosed with fatty liver disease. Exam/Review of Systems Vital Signs Vitals Vital Signs Date Time Temp Pulse Resp B/P Pulse Ox O2 Delivery O2 Flow Rate FiO2 12/29/16 07:38 97.4 60 16 99/57 100 12/29/16 01:55 Room Air Intake and Output 12/28/16 12/28/16 12/29/16 15:00 23:00 07:00 Intake Total 225 ml Balance 225 ml Exam nad, pleasant, laying in bed no mrg lungs clear abd gravid no rashes transaminitis noted Results Result Diagram: 12/28/16202912/28/162029 Results 24 hrs Laboratory Tests Test 12/28/16 20:30 12/28/16 21:15 White Blood Count 14.2 #H Red Blood Count 4.31 # Hemoglobin 14.1 # Hematocrit 38.1 Mean Corpuscular Volume 88.4 Mean Corpuscular Hemoglobin 32.7 Mean Corpuscular Hemoglobin Concent 37.0 Red Cell Distribution Width 12.8 Platelet Count 380 # Mean Platelet Volume 10.2 Neutrophils % 79.2 H Lymphocytes % 13.4 L Monocytes % 6.1 Eosinophils % 0.2 Basophils % 0.5 Nucleated Red Blood Cells % 0.0 Neutrophils # 11.2 H Lymphocytes # 1.9 Monocytes # 0.9 Eosinophils # 0.0 Basophils # 0.1 Nucleated Red Blood Cells # 0.0 Sodium Level 140 Potassium Level 3.1 L Chloride Level 97 Carbon Dioxide Level 24 Anion Gap 22 H Blood Urea Nitrogen 10 Creatinine 0.63 Glucose Level 85 Calcium Level 10.5 H Total Bilirubin 0.5 Direct Bilirubin 0.00 Indirect Bilirubin 0.5 Aspartate Amino Transf (AST/SGOT) 117 H Alanine Aminotransferase (ALT/SGPT) 243 H Alkaline Phosphatase 124 H Total Protein 8.9 H Albumin 4.9 Globulin 4.00 H Albumin/Globulin Ratio 1.22 Lipase 89 Beta HCG, Quantitative 80200.0 Urine Color STRAW Urine Clarity CLEAR Urine pH 8.0 Urine Specific [place] 1.006 Urine Ketones TRACE A Urine Nitrite NEGATIVE Urine Bilirubin NEGATIVE Urine Urobilinogen NEGATIVE Urine Leukocyte Esterase 1+ H Urine Microscopic RBC 0 Urine Microscopic WBC 6 H Urine Squamous Epithelial Cells FEW Urine Hemoglobin NEGATIVE Urine Glucose NEGATIVE Urine Total Protein NEGATIVE Medications Medications Current Medications Ceftriaxone Sodium 50 ml @ 100 mls/hr Q24H IVPB Last administered on 23:30; Admin Dose 100 MLS/HR; Start 12/28/16 at 23:30 Sodium Chloride (NS) 1,000 ml @ 75 mls/hr [id number] IV Last administered on 12/29 02:57; Admin Dose 75 MLS/HR; Start 12/29/16 at 00:47 Metoclopramide HCl (Reglan) 10 mg Q6H PRN IV NAUSEA AND/OR VOMITING; Start 05/07 at 01:00 Pantoprazole (Protonix Iv) 40 mg DAILY@06 IV Last administered on 12/29/16 05: 42; Admin Dose 40 MG; Start 12/29/16 at 06:00 Ondansetron HCl (Zofran Inj) 4 mg Q4H PRN IV NAUSEA AND/OR VOMITING Last administered on 12/29/16 14:28; Admin Dose 4 MG; Start 12/29/16 at 06:30 ALESSIO RIVERA MD Dec 29, 2016 15:27
[2016-12-29] MEDS ORDERED: METOCLOPRAMIDE 5 MG TAB PO PRN (15:30)
--- NOTE | 2016-12-29 16:22 | HP ---
Date/Time of Note Date/Time of Note DATE: 12/29/16 TIME: 16:14 Assessment/Plan VTE Prophylaxis VTE Prophylaxis Intervention: ambulation, anti-embolic stocking Lines/Catheters [facility] (from [facility]): Peripheral IV Urinary Cath still in place: No HPI/ROS Admit Date/Time Admit Date/Time December 29, 2016 Hospital consult Hx of Present Illness This patient is a 31 years old primigravida with intrauterine of about 18 weeks . was admitted in the hospital with a complaint of severe hyperemesis gravidarum with nausea vomiting. She was in the hospital last week with the same complaints On ultrasound study she is a 18 weeks no other abnormal finding Laboratory Tests Test 12/28/16 20:30 12/28/16 21:15 White Blood Count 14.210^3/ul Red Blood Count 4.3110^6/ul Hemoglobin 14.1g/dl Hematocrit 38.1% Mean Corpuscular Volume 88.4fl Mean Corpuscular Hemoglobin 32.7pg Mean Corpuscular Hemoglobin Concent 37.0g/dl Red Cell Distribution Width 12.8% Platelet Count 44514^3/UL Mean Platelet Volume 10.2fl Neutrophils % 79.2% Lymphocytes % 13.4% Monocytes % 6.1% Eosinophils % 0.2% Basophils % 0.5% Nucleated Red Blood Cells % 0.0/100WBC Neutrophils # 11.210^3/ul Lymphocytes # 1.910^3/ul Monocytes # 0.910^3/ul Eosinophils # 0.010^3/ul Basophils # 0.110^3/ul Nucleated Red Blood Cells # 0.010^3/ul Sodium Level 140mmol/L Potassium Level 3.1mmol/L Chloride Level 97mmol/L Carbon Dioxide Level 24mmol/L Anion Gap 22 Blood Urea Nitrogen 10mg/dl Creatinine 0.63mg/dl Glucose Level 85mg/dl Calcium Level 10.5mg/dl Total Bilirubin 0.5mg/dl Direct Bilirubin 0.00mg/dl Indirect Bilirubin 0.5mg/dl Aspartate Amino Transf (AST/SGOT) 117IU/L Alanine Aminotransferase (ALT/SGPT) 243IU/L Alkaline Phosphatase 124IU/L Total Protein 8.9g/dl Albumin 4.9g/dl Globulin 4.00g/dl Albumin/Globulin Ratio 1.22 Lipase 89U/L Beta HCG, Quantitative 68654.0mIU/ml Urine Color STRAW Urine Clarity CLEAR Urine pH 8.0 Urine Specific [place] 1.006 Urine Ketones TRACEmg/dL Urine Nitrite NEGATIVEmg/dL Urine Bilirubin NEGATIVEmg/dL Urine Urobilinogen NEGATIVEmg/dL Urine Leukocyte Esterase 1+Hira/ul Urine Microscopic RBC 0/HPF Urine Microscopic WBC 6/HPF Urine Squamous Epithelial Cells FEW/HPF Urine Hemoglobin NEGATIVEmg/dL Urine Glucose NEGATIVEmg/dL Urine Total Protein NEGATIVEmg/dl Current Medications Medications (Trade) Dose Ordered Sig/Masood Route PRN Reason Start Time Stop Time Status Last Admin Dose Admin Sodium Chloride (NS) 1,000 ml @ 2,000 mls/hr Q30M STAT IV 12/28/16 20:10 12/28/16 20:39 DC 12/28/16 20:42 2,000 MLS/HR Ondansetron HCl (Zofran Inj) 4 mg ONCE STAT IV 12/28/16 20:10 12/28/16 20:12 DC 12/28/16 20:42 4 MG Potassium Chloride (Klor-Con 20) 40 meq ONCE STAT PO 12/28/16 22:11 12/28/16 22:13 DC 12/28/16 23:46 40 MEQ Metoclopramide HCl 10 mg 10 mg ONCE ONCE IV 12/28/16 23:00 12/28/16 23:01 DC 12/28/16 22:48 10 MG Sodium Chloride 1,000 ml @ 1,000 mls/hr Q1H ONCE IV 12/28/16 23:00 12/28/16 23:59 DC 12/28/16 22:48 1,000 MLS/HR Ceftriaxone Sodium 50 ml @ 100 mls/hr Q24H IVPB 12/28/16 23:30 12/28/16 23:30 100 MLS/HR Sodium Chloride (NS) 1,000 ml @ 75 mls/hr [id number] IV 12/29/16 00:47 12/29/16 02:57 75 MLS/HR IV Flush (NS 3 ml) 3 ml PER PROTOCOL IV 12/29/16 01:00 Metoclopramide HCl (Reglan) 10 mg Q6H PRN IV NAUSEA AND/OR VOMITING 12/29/16 01:00 Pantoprazole (Protonix Iv) 40 mg DAILY@06 IV 12/29/16 06:00 12/29/16 15:22 DC 12/29/16 05:42 40 MG Ondansetron HCl 8 mg 8 mg ONCE STAT IV 12/29/16 01:27 12/29/16 01:28 Cancel Ondansetron HCl/ Sodium Chloride (Zofran Inj/NS) 54 ml @ 220 mls/hr ONCE ONCE IV 12/29/16 02:00 12/29/16 02:14 DC Ondansetron HCl (Zofran Inj) 4 mg Q4H PRN IV NAUSEA AND/OR VOMITING 12/29/16 06:30 12/29/16 14:28 4 MG Diphenhydramine HCl (Benadryl) 25 mg Q6 PRN PO ITCHING 12/29/16 15:30 Famotidine (Pepcid) 20 mg BID PO 12/29/16 15:29 Metoclopramide HCl (Reglan) 5 mg Q6 PRN PO nausea 12/29/16 15:30 ROS She is placed on Reglan and Zofran as well as Rocephin 1 g. metoclopramide ( Reglan0 she is getting every 6 hours Protonix 40 mg daily when I saw her today she was doing fairly well ,Her abdomen was soft no tenderness no uterine tenderness no CVA tenderness Ear nose throat were normal Constitutional: No chills, No diaphoresis, No disoriented, No fatigue, No febrile, No improved, No nausea, No no complaints, No other, No poor po, No weight change Eyes: No discharge, No no complaints, No other, No pain, No redness, No visual change ENT: No bleeding, No congestion, No discharge, No dysphagia, No no complaints, No other, No pain, No sore throat Respiratory: other (Lungs were clear), No cough, No no complaints, No pain, No pleuritic pain, No shortness of breath, No sputum, No wheezing Cardiovascular: other (Normal sinus rhythm no murmur), No chest pain, No edema, No lightheadedness, No no complaints, No orthopenea , No palpitations, No paroxysmal nocturnal dyspnea Gastrointestinal: other (Abdomen was soft no tenderness fundus could be palpated no tenderness), No blood, No constipation, No decreased appetite, No diarrhea, No flatus, No nausea, No no complaints, No pain, No passing stool, No vomiting Genitourinary: other (No vaginal bleeding), No bleeding, No discharge, No dysuria, No flank pain, No hematuria, No no complaints Musculoskeletal: No back pain, No bone/joint pain, No neck pain, No no complaints, No other, No restricted range of motion, No swelling Skin: other (At this time no evidence of dehydration), No bruising, No erythema, No laceration, No no complaints, No pruritis, No rash, No skin lesions Neurologic: other (Knee-jerk reflex are normal), No confusion, No dizziness, No focal-weakness, No headache, No no complaints , No seizure, No syncope Endocrine: other (No thyromegaly), No dry skin, No no complaints, No polydypsia, No polyuria, No temp intolerance, No weight change Lymphatic: other (As I mentioned no lymph node enlargement anywhere in about), No adenopathy, No lymphadema, No no complaints, No tender nodes Psychological: other (Concern about the face of her especially at this age of 31), No anxiety, No confusion, No depression, No nl mood/affect, No no complaints , No suicidal Immunologic: No immunodeficiency, No no complaints, No other, No pruritis, No rhinitis, No urticaria Additional Comments Today on examination as I mentioned, her abdomen is soft, chest is clear, fundus is soft nontender, no vaginal bleeding extremities are normal not, very dehydrated chest is clear , with antiemetic treatment antibiotic and IV hydration she feels much better and much less nauseous. Disposition I explained to her the process of hyperemesis gravidarum and the fact that it might continue for a while rarely up to term usually within few weeks it should be less probable problematic. I believe she will continue to improve she could be discharged tomorrow on oral medication PMH/Family/Social Past Medical History Medical History: no pertinent history Social History Alcohol Use: none Smoking Status: Never smoker Drug Use: none Exam/Review of Systems Vital Signs Vitals Vital Signs Date Time Temp Pulse Resp B/P Pulse Ox O2 Delivery O2 Flow Rate FiO2 12/29/16 07:38 97.4 60 16 99/57 100 12/29/16 01:55 Room Air Intake and Output 12/28/16 12/28/16 12/29/16 15:00 23:00 07:00 Intake Total 225 ml Balance 225 ml Labs Result Diagram: 12/28/16202912/28/162029 Medications Medications Current Medications Ceftriaxone Sodium 50 ml @ 100 mls/hr Q24H IVPB Last administered on 23:30; Admin Dose 100 MLS/HR; Start 12/28/16 at 23:30 Sodium Chloride (NS) 1,000 ml @ 75 mls/hr [id number] IV Last administered on 12/29 02:57; Admin Dose 75 MLS/HR; Start 12/29/16 at 00:47 Metoclopramide HCl (Reglan) 10 mg Q6H PRN IV NAUSEA AND/OR VOMITING; Start 05/07 at 01:00 Ondansetron HCl (Zofran Inj) 4 mg Q4H PRN IV NAUSEA AND/OR VOMITING Last administered on 12/29/16 14:28; Admin Dose 4 MG; Start 12/29/16 at 06:30 Diphenhydramine HCl (Benadryl) 25 mg Q6 PRN PO ITCHING; Start 12/29/16 at 15:30 Famotidine (Pepcid) 20 mg BID PO ; Start 12/29/16 at 15:29 Metoclopramide HCl (Reglan) 5 mg Q6 PRN PO nausea; Start 12/29/16 at 15:30 BETTIE BOUDREAUX MD Dec 29, 2016 16:22
[2016-12-29] MEDS: FAMOTIDINE 20 MG TAB PO SCH ×2 (16:35→21:00)
[2016-12-29 19:44] VITALS: BP 105/59; RESP 18
--- NOTE | 2016-12-29 20:32 | RADRPT ---
PROCEDURE: Complete abdominal ultrasound. CLINICAL INDICATION: Abdominal pain, abnormal liver function tests TECHNIQUE: Canseco scale and color doppler ultrasound images of the abdomen. COMPARISON: Abdominal ultrasound 12/03/2016 FINDINGS: Pancreas: Visualized portions appear of normal echogenicity, no focal lesions. Liver: Morphology: Normal in size and contour. 15.5 cm in length Echogenicity: Mildly increased echogenicity of the liver suggestive of hepatic steatosis. Focal lesions: None. Main portal vein: Patent with hepatopetal flow. Biliary System: Normal appearing gallbladder wall. Sludge without definite shadowing gallstones observed within the gallbladder. No intrahepatic biliary dilatation. Common bile duct diameter: 3.6 mm Kidneys: Right length: 11.2 cm. Right renal cortical thickness is preserved. Left length: 10.0 cm. Left renal cortical thickness is preserved. Normal echogenicity. No hydronephrosis. No renal calculi. No focal renal lesions. Spleen: Normal in size, no focal lesions. No free fluid identified. Normal caliber of the partially visualized aorta. IMPRESSION: Normal gallbladder without gallstones. Mildly increased echogenicity of the liver suggestive of hepatic steatosis. No focal hepatic lesions . RPTAT: AADD .Juan Ramon Morejon MD, MD Date Time Electronically viewed and signed by .Juan Ramon Morejon MD, on 12/29/2016 20:31 .B/
[2016-12-29] MEDS: DIPHENHYDRAMINE 25 MG CAP PO PRN (22:24)
[2016-12-29] MEDS: CEFTRIAXONE 1 GM/50 ML (PMX) 50 ML IVPB SCH (23:40)
[2016-12-30] MEDS: SOD CHLORIDE 0.9% 1,000 ML IV SCH ×3 (03:27→22:00)
[2016-12-30 06:42] LABS: ADD SCAN DIFF NO
[2016-12-30 06:48] LABS: BASOPHIL # 0.1 10^3/ul (0.0-0.1); BASOPHILS % 0.6 % (0.0-2.0); EOSINOPHILS # 0.2 10^3/ul (0.0-0.5); EOSINOPHILS % 1.8 % (0.0-7.0); HEMATOCRIT 28.1 % (37.0-47.0); LYMPHOCYTES # 2.5 10^3/ul (0.8-2.9); LYMPHOCYTES % 28.1 % (15.0-51.0); MEAN CORPUSCULAR HEMOGLOBIN 32.5 pg (29.0-33.0); MEAN CORPUSCULAR HGB CONC 35.6 g/dl (32.0-37.0); MEAN CORPUSCULAR VOLUME 91.2 fl (82.0-101.0); MEAN PLATELET VOLUME 10.1 fl (7.4-10.4); MONOCYTE # 0.8 10^3/ul (0.3-0.9); MONOCYTES % 8.6 % (0.0-11.0); NEUTROPHIL # 5.3 10^3/ul (1.6-7.5); NEUTROPHILS % 60.1 % (39.0-77.0); PLATELET COUNT 267 10^3/UL (140-415); RED BLOOD COUNT 3.08 10^6/ul (4.20-5.40); RED CELL DISTRIBUTION WIDTH 13.1 % (11.5-14.5); WHITE BLOOD COUNT 8.9 10^3/ul (4.8-10.8)
[2016-12-30 07:08] LABS: ALBUMIN/GLOBULIN RATIO 1.2; BILIRUBIN,INDIRECT 0.1 mg/dl (0-1.1); BILIRUBIN,TOTAL 0.1 mg/dl (0.2-1.3); CALCIUM 8.4 mg/dl (8.4-10.2); CREATININE 0.58 mg/dl (0.44-1.00); MAGNESIUM 1.5 mg/dl (1.7-2.5); POTASSIUM 3.3 mmol/L (3.5-5.1); TOTAL PROTEIN 5.5 g/dl (6.1-8.1)
[2016-12-30 07:33] VITALS: BP 99/57; RESP 18
[2016-12-30] MEDS: FAMOTIDINE 20 MG TAB PO SCH ×2 (08:38→21:56)
--- NOTE | 2016-12-30 13:18 | PN ---
Date/Time of Note Date/Time of Note DATE: 12/30/16 TIME: 13:17 Assessment/Plan VTE Prophylaxis VTE Prophylaxis Intervention: SCD's Lines/Catheters IV [facility] Type ([facility] Peripheral IV Urinary Cath still in place: No Assessment/Plan Assessment/Plan 31 yo F 18 weeks into admitted for intractable nausea/vomiting. Suspect etio hyperemesis gravidum. #HG: cont supportive care #transaminitis: repeat liver US fatty liver noted on US 2 weeks ago #: OB following stop abx as urine culture sterile anticipate discharge in 1-2 days if nausea remains controlled Subjective 24 Hr Interval Summary Free Text/Dictation Pt doesn't feel ready to go home just yet. Exam/Review of Systems Vital Signs Vitals Vital Signs Date Time Temp Pulse Resp B/P Pulse Ox O2 Delivery O2 Flow Rate FiO2 12/30/16 07:33 98.4 74 18 99/57 98 12/29/16 01:55 Room Air Intake and Output 12/29/16 12/29/16 12/30/16 15:00 23:00 07:00 Intake Total 50 ml 1410 ml 1070 ml Balance 50 ml 1410 ml 1070 ml Exam nad, ambulating back from bathroom no mrg lungs clear abd gravid no rashes Results Result Diagram: 12/30/16 0624 12/30/16 0624 Results 24 hrs Laboratory Tests Test 12/30/16 06:24 12/30/16 06:25 White Blood Count 8.9 # Red Blood Count 3.08 #L Hemoglobin 10.0 #L Hematocrit 28.1 #L Mean Corpuscular Volume 91.2 Mean Corpuscular Hemoglobin 32.5 Mean Corpuscular Hemoglobin Concent 35.6 Red Cell Distribution Width 13.1 Platelet Count 267 # Mean Platelet Volume 10.1 Neutrophils % 60.1 Lymphocytes % 28.1 Monocytes % 8.6 Eosinophils % 1.8 Basophils % 0.6 Nucleated Red Blood Cells % 0.0 Neutrophils # 5.3 Lymphocytes # 2.5 Monocytes # 0.8 Eosinophils # 0.2 Basophils # 0.1 Nucleated Red Blood Cells # 0.0 Sodium Level 129 L Potassium Level 3.3 L Chloride Level 106 Carbon Dioxide Level 23 Anion Gap 3 #L Blood Urea Nitrogen 4 L Creatinine 0.58 Glucose Level 79 Calcium Level 8.4 Magnesium Level 1.5 L Total Bilirubin 0.1 L Direct Bilirubin 0.00 Indirect Bilirubin 0.1 Aspartate Amino Transf (AST/SGOT) 51 H Alanine Aminotransferase (ALT/SGPT) 123 H Alkaline Phosphatase 71 Total Protein 5.5 #L Albumin 3.0 #L Globulin 2.50 Albumin/Globulin Ratio 1.20 Thyroid Stimulating Hormone (TSH) 0.531 Free Thyroxine 0.91 Medications Medications Current Medications Sodium Chloride (NS) 1,000 ml @ 75 mls/hr [id number] IV Last administered on 12/30 08:39; Admin Dose 75 MLS/HR; Start 12/29/16 at 00:47 Metoclopramide HCl (Reglan) 10 mg Q6H PRN IV NAUSEA AND/OR VOMITING; Start 05/07 at 01:00 Ondansetron HCl (Zofran Inj) 4 mg Q4H PRN IV NAUSEA AND/OR VOMITING Last administered on 12/29/16 22:24; Admin Dose 4 MG; Start 12/29/16 at 06:30 Diphenhydramine HCl (Benadryl) 25 mg Q6 PRN PO ITCHING Last administered on 22:24; Admin Dose 25 MG; Start 12/29/16 at 15:30 Famotidine (Pepcid) 20 mg BID PO Last administered on 12/30/16 08:38; Admin Dose 20 MG; Start 12/29/16 at 15:29 Metoclopramide HCl (Reglan) 5 mg Q6 PRN PO nausea Last administered on 08:36; Admin Dose 5 MG; Start 12/29/16 at 15:30 ALESSIO RIVERA MD Dec 30, 2016 13:18
[2016-12-30] MEDS ORDERED: POTASSIUM CHLORIDE (SR) 20 MEQ TAB PO STA (13:20)
--- NOTE | 2016-12-30 17:43 | PN ---
Date/Time of Note Date/Time of Note DATE: 12/30/16 TIME: 17:41 OB Subjective Subjective Subjective Patient reports significant improvement of her symptoms. She could tolerate diet today well. Denies any leaking of fluid, fever, chills, vaginal bleeding or any other complaints. OB Objective Objective Objective Abdomen: Soft, fundal height at 2 cm below the umbilicus consistent with 18 weeks . No abdominal tenderness, No CVA tenderness Extremities, no calf tenderness, no click, negative Homans sign Hematology - 72 Hrs Test 12/28/16 20:30 12/30/16 06:24 White Blood Count 14.210^3/ul (4.8-10.8) #H 8.910^3/ul (4.8-10.8) # Red Blood Count 4.3110^6/ul (4.20-5.40) # 3.0810^6/ul (4.20-5.40) #L Hemoglobin 14.1g/dl (12.0-16.0) # 10.0g/dl (12.0-16.0) #L Hematocrit 38.1% (37.0-47.0) 28.1% (37.0-47.0) #L Mean Corpuscular Volume 88.4fl (82.0-101.0) 91.2fl (82.0-101.0) Mean Corpuscular Hemoglobin 32.7pg (29.0-33.0) 32.5pg (29.0-33.0) Mean Corpuscular Hemoglobin Concent 37.0g/dl (32.0-37.0) 35.6g/dl (32.0-37.0) Red Cell Distribution Width 12.8% (11.5-14.5) 13.1% (11.5-14.5) Platelet Count 33635^3/UL (140-415) # 76869^3/UL (140-415) # Mean Platelet Volume 10.2fl (7.4-10.4) 10.1fl (7.4-10.4) Neutrophils % 79.2% (39.0-77.0) H 60.1% (39.0-77.0) Lymphocytes % 13.4% (15.0-51.0) L 28.1% (15.0-51.0) Monocytes % 6.1% (0.0-11.0) 8.6% (0.0-11.0) Eosinophils % 0.2% (0.0-7.0) 1.8% (0.0-7.0) Basophils % 0.5% (0.0-2.0) 0.6% (0.0-2.0) Nucleated Red Blood Cells % 0.0/100WBC (0.0-0.0) 0.0/100WBC (0.0-0.0) Neutrophils # 11.210^3/ul (1.6-7.5) H 5.310^3/ul (1.6-7.5) Lymphocytes # 1.910^3/ul (0.8-2.9) 2.510^3/ul (0.8-2.9) Monocytes # 0.910^3/ul (0.3-0.9) 0.810^3/ul (0.3-0.9) Eosinophils # 0.010^3/ul (0.0-0.5) 0.210^3/ul (0.0-0.5) Basophils # 0.110^3/ul (0.0-0.1) 0.110^3/ul (0.0-0.1) Nucleated Red Blood Cells # 0.010^3/ul (0.0-0.0) 0.010^3/ul (0.0-0.0) Chemistry Test 12/28/16 20:30 12/30/16 06:24 12/30/16 06:25 Sodium Level 140mmol/L (135-144) 129mmol/L (135-144) L Potassium Level 3.1mmol/L (3.5-5.1) L 3.3mmol/L (3.5-5.1) L Chloride Level 97mmol/L (97-110) 106mmol/L (97-110) Carbon Dioxide Level 24mmol/L (21-31) 23mmol/L (21-31) Anion Gap 22 (8-16) H 3 (8-16) #L Blood Urea Nitrogen 10mg/dl (7-20) 4mg/dl (7-20) L Creatinine 0.63mg/dl (0.44-1.00) 0.58mg/dl (0.44-1.00) Glucose Level 85mg/dl (70-220) 79mg/dl (70-220) Calcium Level 10.5mg/dl (8.4-10.2) H 8.4mg/dl (8.4-10.2) Total Bilirubin 0.5mg/dl (0.2-1.3) 0.1mg/dl (0.2-1.3) L Direct Bilirubin 0.00mg/dl (0.00-0.20) 0.00mg/dl (0.00-0.20) Indirect Bilirubin 0.5mg/dl (0-1.1) 0.1mg/dl (0-1.1) Aspartate Amino Transf (AST/SGOT) 117IU/L (15-46) H 51IU/L (15-46) H Alanine Aminotransferase (ALT/SGPT) 243IU/L (13-69) H 123IU/L (13-69) H Alkaline Phosphatase 124IU/L (42-121) H 71IU/L (42-121) Total Protein 8.9g/dl (6.1-8.1) H 5.5g/dl (6.1-8.1) #L Albumin 4.9g/dl (3.3-4.9) 3.0g/dl (3.3-4.9) #L Globulin 4.00g/dl (1.3-3.2) H 2.50g/dl (1.3-3.2) Albumin/Globulin Ratio 1.22 1.20 Lipase 89U/L (23-300) Beta HCG, Quantitative 44677.0mIU/ml Magnesium Level 1.5mg/dl (1.7-2.5) L Thyroid Stimulating Hormone (TSH) 0.531MIU/L (0.465-4.680) Free Thyroxine 0.91ng/dl (0.79-2.35) OB Assessment/Plan Other Assessment: Hospital day #3 Admitted for hyperemesis gravidarum No evidence of hypothyroidism. Single gestation Doing well with current treatment Patient also on IV Rocephin, for UTI,Urine is clean. Stop IV antibiotics Transaminitis, improving .no evidence of cholecystitis, fatty liver noted in ultrasound Recommend Nutritional counseling for HG diet Started on Doxylamine 10 mg PO daily and Pyridoxine QID Anticipate DC home tomorrow if continue to remain asymtomatic with above treatment GARETH LIEBERMAN MD Dec 30, 2016 17:43
[2016-12-30] MEDS ORDERED: DOXYLAMINE XX SCH (18:00)
[2016-12-30] MEDS: ONDANSETRON 4 MG INJ IV PRN (18:03)
[2016-12-30] MEDS: PYRIDOXINE 50 MG TAB PO SCH ×2 (18:08→21:00)
[2016-12-30 20:01] VITALS: BP 105/63; PULSE 77; RESP 18
[2016-12-30] MEDS: DIPHENHYDRAMINE 25 MG CAP PO PRN (21:58)
[2016-12-31 02:10] VITALS: BP 92/52; PULSE 71; RESP 18
[2016-12-31] MEDS: SOD CHLORIDE 0.9% 1,000 ML IV SCH ×2 (06:07→12:28)
[2016-12-31 06:18] LABS: ALBUMIN 3.2 g/dl (3.3-4.9); ALBUMIN/GLOBULIN RATIO 1.33; BILIRUBIN,INDIRECT 0.2 mg/dl (0-1.1); BILIRUBIN,TOTAL 0.2 mg/dl (0.2-1.3); CALCIUM 8.4 mg/dl (8.4-10.2); CREATININE 0.6 mg/dl (0.44-1.00); POTASSIUM 3.7 mmol/L (3.5-5.1); TOTAL PROTEIN 5.6 g/dl (6.1-8.1)
[2016-12-31 07:54] VITALS: BP 103/57; RESP 18
[2016-12-31] MEDS: FAMOTIDINE 20 MG TAB PO SCH (08:22)
[2016-12-31] MEDS: PYRIDOXINE 50 MG TAB PO SCH ×3 (08:22→17:00)
[2016-12-31] MEDS: ONDANSETRON 4 MG INJ IV PRN ×2 (08:22→12:29)
--- NOTE | 2016-12-31 10:58 | PN ---
Date/Time of Note Date/Time of Note DATE: 12/31/16 TIME: 10:57 Assessment/Plan VTE Prophylaxis VTE Prophylaxis Intervention: SCD's Lines/Catheters IV Catheter Type (from [facility]): Peripheral IV Urinary Cath still in place: No Assessment/Plan Assessment/Plan 31 yo F 18 weeks into admitted for intractable nausea/vomiting. Suspect etio hyperemesis gravidum. #HG: cont supportive care; additional meds as per OB #transaminitis: repeat liver US fatty liver noted on US 2 weeks ago #: OB following stopped abx as urine culture sterile anticipate discharge tomorrow if nausea remains controlled Subjective 24 Hr Interval Summary Free Text/Dictation Feeling better but still wants 1 more day in the hospital before she goes home Exam/Review of Systems Vital Signs Vitals Vital Signs Date Time Temp Pulse Resp B/P Pulse Ox O2 Delivery O2 Flow Rate FiO2 12/31/16 07:54 98.4 77 18 103/57 98 12/31/16 02:10 Room Air Intake and Output 12/30/16 12/30/16 12/31/16 15:00 23:00 07:00 Intake Total 170 ml 2280 ml 885 ml Balance 170 ml 2280 ml 885 ml Exam nad no mrg lungs clear gravid no rashes Results Result Diagram: 12/30/16 0624 12/31/16 0444 Results 24 hrs Laboratory Tests Test 12/31/16 04:44 Sodium Level 133 L Potassium Level 3.7 Chloride Level 107 Carbon Dioxide Level 22 Anion Gap 8 Blood Urea Nitrogen 3 L Creatinine 0.60 Glucose Level 77 Calcium Level 8.4 Total Bilirubin 0.2 Direct Bilirubin 0.00 Indirect Bilirubin 0.2 Aspartate Amino Transf (AST/SGOT) 36 Alanine Aminotransferase (ALT/SGPT) 103 H Alkaline Phosphatase 64 Total Protein 5.6 L Albumin 3.2 L Globulin 2.40 Albumin/Globulin Ratio 1.33 Medications Medications Current Medications Sodium Chloride (NS) 1,000 ml @ 75 mls/hr [id number] IV Last administered on 12/30t 22:00; Admin Dose 75 MLS/HR; Start 12/29/16 at 00:47 Metoclopramide HCl (Reglan) 10 mg Q6H PRN IV NAUSEA AND/OR VOMITING; Start 05/07 at 01:00 Ondansetron HCl (Zofran Inj) 4 mg Q4H PRN IV NAUSEA AND/OR VOMITING Last administered on 12/31/16 08:22; Admin Dose 4 MG; Start 12/29/16 at 06:30 Diphenhydramine HCl (Benadryl) 25 mg Q6 PRN PO ITCHING Last administered on 21:58; Admin Dose 25 MG; Start 12/29/16 at 15:30 Famotidine (Pepcid) 20 mg BID PO Last administered on 12/31/16 08:22; Admin Dose 20 MG; Start 12/29/16 at 15:29 Metoclopramide HCl (Reglan) 5 mg Q6 PRN PO nausea Last administered on 08:36; Admin Dose 5 MG; Start 12/29/16 at 15:30 Pyridoxine HCl (Vitamin B6) 25 mg QID PO Last administered on 12/31/16 08:22; Admin Dose 25 MG; Start 12/30/16 at 18:00 Miscellaneous Information 10 mg DAILY XX ; Start 12/30/16 at 18:00; Status ALESSIO KANG MD Dec 31, 2016 10:58
[2016-12-31 14:02] VITALS: BP 100/57; RESP 18
[2016-12-31] MEDS ORDERED: METOCLOPRAMIDE 5 MG TAB PO SCH (16:00)
[2016-12-31] MEDS ORDERED: Pyridoxine PO (16:49)
[2016-12-31] MEDS ORDERED: ONDA4TAB95 PO (16:49)
[2016-12-31] MEDS ORDERED: PYRI50TA80 PO (16:50)
--- NOTE | 2016-12-31 16:51 | PDOCDIS ---
Discharge Instructions CONDITION Patient Condition: Stable HOME CARE INSTRUCTIONS: Special Diet: regular FOLLOW UP/APPOINTMENTS Follow-up Plan Follow up with your OB as scheduled ALESSIO RIVERA MD Dec 31, 2016 16:51
[2016-12-31] MEDS ORDERED: METO5TAB58 PO (16:54)
--- NOTE | 2016-12-31 16:55 | QN ---
Documentation Comment December 31, 2016 Hospital progress note This patient is a 31 years old primigravida with intrauterine of about 18 weeks . was admitted in the hospital with a complaint of severe hyperemesis gravidarum with nausea vomiting. She was seen in the hospital 2 weeks ago with the same complaints She still does have nausea with occasional vomiting she is on Zofran 4 mg IV every 6 hours as needed and today she was placed on Reglan 5 mg PO every 6 hours on a PRN basis p She still has her IV going but she can tolerate food better. now she is taking even regular diet As I mentioned last time she should be able to be discharged home on oral antiemetic such as same Zofran and Reglan and be fallowed by her obstetricia Laboratory Tests Test 12/31/16 04:44 Sodium Level 133mmol/L Potassium Level 3.7mmol/L Chloride Level 107mmol/L Carbon Dioxide Level 22mmol/L Anion Gap 8 Blood Urea Nitrogen 3mg/dl Creatinine 0.60mg/dl Glucose Level 77mg/dl Calcium Level 8.4mg/dl Total Bilirubin 0.2mg/dl Direct Bilirubin 0.00mg/dl Indirect Bilirubin 0.2mg/dl Aspartate Amino Transf (AST/SGOT) 36IU/L Alanine Aminotransferase (ALT/SGPT) 103IU/L Alkaline Phosphatase 64IU/L Total Protein 5.6g/dl Albumin 3.2g/dl Globulin 2.40g/dl Albumin/Globulin Ratio 1.33 Current Medications Medications (Trade) Dose Ordered Sig/Masood Route PRN Reason Start Time Stop Time Status Last Admin Dose Admin Sodium Chloride (NS) 1,000 ml @ 2,000 mls/hr Q30M STAT IV 12/28/16 20:10 12/28/16 20:39 DC 12/28/16 20:42 Ondansetron HCl (Zofran Inj) 4 mg ONCE STAT IV 12/28/16 20:10 12/28/16 20:12 DC 12/28/16 20:42 Potassium Chloride (Klor-Con 20) 40 meq ONCE STAT PO 12/28/16 22:11 12/28/16 22:13 DC 12/28/16 23:46 Metoclopramide HCl 10 mg 10 mg ONCE ONCE IV 12/28/16 23:00 12/28/16 23:01 DC 12/28/16 22:48 Sodium Chloride 1,000 ml @ 1,000 mls/hr Q1H ONCE IV 12/28/16 23:00 12/28/16 23:59 DC 12/28/16 22:48 Ceftriaxone Sodium 50 ml @ 100 mls/hr Q24H IVPB 12/28/16 23:30 12/30/16 12:02 DC 12/29/16 23:40 Sodium Chloride (NS) 1,000 ml @ 75 mls/hr [id number] IV 12/29/16 00:47 12/31/16 12:28 IV Flush (NS 3 ml) 3 ml PER PROTOCOL IV 12/29/16 01:00 Metoclopramide HCl (Reglan) 10 mg Q6H PRN IV NAUSEA AND/OR VOMITING 12/29/16 01:00 Pantoprazole (Protonix Iv) 40 mg DAILY@06 IV 12/29/16 06:00 12/29/16 15:22 DC 12/29/16 05:42 Ondansetron HCl 8 mg 8 mg ONCE STAT IV 12/29/16 01:27 12/29/16 01:28 Cancel Ondansetron HCl/ Sodium Chloride (Zofran Inj/NS) 54 ml @ 220 mls/hr ONCE ONCE IV 12/29/16 02:00 12/29/16 02:14 DC Ondansetron HCl (Zofran Inj) 4 mg Q4H PRN IV NAUSEA AND/OR VOMITING 12/29/16 06:30 12/31/16 12:29 Diphenhydramine HCl (Benadryl) 25 mg Q6 PRN PO ITCHING 12/29/16 15:30 12/30/16 21:58 Famotidine (Pepcid) 20 mg BID PO 12/29/16 15:29 12/31/16 08:22 Metoclopramide HCl (Reglan) 5 mg Q6 PRN PO nausea 12/29/16 15:30 12/31/16 15:22 DC 12/30/16 08:36 Potassium Chloride (Klor-Con 20) 40 meq ONCE STAT PO 12/30/16 13:20 12/30/16 13:22 DC 12/30/16 14:32 Pyridoxine HCl (Vitamin B6) 25 mg QID PO 12/30/16 18:00 12/31/16 13:52 Miscellaneous Information 10 mg DAILY XX 12/30/16 18:00 12/31/16 15:19 DC Metoclopramide HCl (Reglan) 5 mg Q6 PO 12/31/16 16:00 12/31/16 16:18 BETTIE BOUDREAUX MD Dec 31, 2016 16:55
--- NOTE | 2016-12-31 16:57 | DS ---
Date/Time of Note Date/Time of Note DATE: 12/31/16 TIME: 16:54 Discharge Summary Admission/Discharge Info Admit Date/Time Dec 28, 2016 at 23:14 Discharge Date/Time Discharge Diagnosis hyperemesis gravidum Patient Condition: Good Consults OB Procedures 7.11 Abd US IMPRESSION: Normal gallbladder without gallstones. Mildly increased echogenicity of the liver suggestive of hepatic steatosis. No focal hepatic lesions. 7.11: urine culture: john Hx of Present Illness This patient is a 31 years old primigravida with intrauterine of about 18 weeks . was admitted in the hospital with a complaint of severe hyperemesis gravidarum with nausea vomiting. She was in the hospital last week with the same complaints On ultrasound study she is a 18 weeks no other abnormal finding Laboratory Tests Test 12/28/16 20:30 12/28/16 21:15 White Blood Count 14.210^3/ul Red Blood Count 4.3110^6/ul Hemoglobin 14.1g/dl Hematocrit 38.1% Mean Corpuscular Volume 88.4fl Mean Corpuscular Hemoglobin 32.7pg Mean Corpuscular Hemoglobin Concent 37.0g/dl Red Cell Distribution Width 12.8% Platelet Count 03992^3/UL Mean Platelet Volume 10.2fl Neutrophils % 79.2% Lymphocytes % 13.4% Monocytes % 6.1% Eosinophils % 0.2% Basophils % 0.5% Nucleated Red Blood Cells % 0.0/100WBC Neutrophils # 11.210^3/ul Lymphocytes # 1.910^3/ul Monocytes # 0.910^3/ul Eosinophils # 0.010^3/ul Basophils # 0.110^3/ul Nucleated Red Blood Cells # 0.010^3/ul Sodium Level 140mmol/L Potassium Level 3.1mmol/L Chloride Level 97mmol/L Carbon Dioxide Level 24mmol/L Anion Gap 22 Blood Urea Nitrogen 10mg/dl Creatinine 0.63mg/dl Glucose Level 85mg/dl Calcium Level 10.5mg/dl Total Bilirubin 0.5mg/dl Direct Bilirubin 0.00mg/dl Indirect Bilirubin 0.5mg/dl Aspartate Amino Transf (AST/SGOT) 117IU/L Alanine Aminotransferase (ALT/SGPT) 243IU/L Alkaline Phosphatase 124IU/L Total Protein 8.9g/dl Albumin 4.9g/dl Globulin 4.00g/dl Albumin/Globulin Ratio 1.22 Lipase 89U/L Beta HCG, Quantitative 70236.0mIU/ml Urine Color STRAW Urine Clarity CLEAR Urine pH 8.0 Urine Specific [place] 1.006 Urine Ketones TRACEmg/dL Urine Nitrite NEGATIVEmg/dL Urine Bilirubin NEGATIVEmg/dL Urine Urobilinogen NEGATIVEmg/dL Urine Leukocyte Esterase 1+Hira/ul Urine Microscopic RBC 0/HPF Urine Microscopic WBC 6/HPF Urine Squamous Epithelial Cells FEW/HPF Urine Hemoglobin NEGATIVEmg/dL Urine Glucose NEGATIVEmg/dL Urine Total Protein NEGATIVEmg/dl Current Medications Medications (Trade) Dose Ordered Sig/Masood Route PRN Reason Start Time Stop Time Status Last Admin Dose Admin Sodium Chloride (NS) 1,000 ml @ 2,000 mls/hr Q30M STAT IV 12/28/16 20:10 12/28/16 20:39 DC 12/28/16 20:42 2,000 MLS/HR Ondansetron HCl (Zofran Inj) 4 mg ONCE STAT IV 12/28/16 20:10 12/28/16 20:12 DC 12/28/16 20:42 4 MG Potassium Chloride (Klor-Con 20) 40 meq ONCE STAT PO 12/28/16 22:11 12/28/16 22:13 DC 12/28/16 23:46 40 MEQ Metoclopramide HCl 10 mg 10 mg ONCE ONCE IV 12/28/16 23:00 12/28/16 23:01 DC 12/28/16 22:48 10 MG Sodium Chloride 1,000 ml @ 1,000 mls/hr Q1H ONCE IV 12/28/16 23:00 12/28/16 23:59 DC 12/28/16 22:48 1,000 MLS/HR Ceftriaxone Sodium 50 ml @ 100 mls/hr Q24H IVPB 12/28/16 23:30 12/28/16 23:30 100 MLS/HR Sodium Chloride (NS) 1,000 ml @ 75 mls/hr [id number] IV 12/29/16 00:47 12/29/16 02:57 75 MLS/HR IV Flush (NS 3 ml) 3 ml PER PROTOCOL IV 12/29/16 01:00 Metoclopramide HCl (Reglan) 10 mg Q6H PRN IV NAUSEA AND/OR VOMITING 12/29/16 01:00 Pantoprazole (Protonix Iv) 40 mg DAILY@06 IV 12/29/16 06:00 12/29/16 15:22 DC 12/29/16 05:42 40 MG Ondansetron HCl 8 mg 8 mg ONCE STAT IV 12/29/16 01:27 12/29/16 01:28 Cancel Ondansetron HCl/ Sodium Chloride (Zofran Inj/NS) 54 ml @ 220 mls/hr ONCE ONCE IV 12/29/16 02:00 12/29/16 02:14 DC Ondansetron HCl (Zofran Inj) 4 mg Q4H PRN IV NAUSEA AND/OR VOMITING 12/29/16 06:30 12/29/16 14:28 4 MG Diphenhydramine HCl (Benadryl) 25 mg Q6 PRN PO ITCHING 12/29/16 15:30 Famotidine (Pepcid) 20 mg BID PO 12/29/16 15:29 Metoclopramide HCl (Reglan) 5 mg Q6 PRN PO nausea 12/29/16 15:30 Hospital Course HG controlled with IVFs, zofran, reglan. Pt also seen by OB. No compromise noted. OB added high dose B6 for HG. Pt able to tolerate PO and nausea controlled with PO meds at time of discharge. She is to f/u with OB as scheduled. Home Meds Active Scripts Metoclopramide* (Reglan*) 5 Mg Tablet, 5 MG PO Q6H Y for NAUSEA AND OR VOMITING for 7 Days, #30 TAB Prov:ALESSIO RIVERA MD 12/31/16 Pyridoxine Hcl (Vitamin B6) 50 Mg Tab, 50 MG PO QID for 30 Days, #120 TAB Prov:ALESSIO RIVERA MD 12/31/16 Ondansetron Hcl* (Ondansetron Hcl*) 4 Mg Tablet, 4 MG PO Q4H Y for NAUSEA AND OR VOMITING for 7 Days, #30 TAB Prov:ALESSIO RIVERA MD 12/31/16 [Pyridoxine] 50 MG TAB No Conflict Check, 25 MG PO QID for 30 Days, #120 Prov:ALESSIO RIVERA MD 12/31/16 Metoclopramide Hcl* (Metoclopramide Hcl*) 5 Mg Tablet, 5 MG PO Q6 Y for nausea for 7 Days, #20 TAB Prov:ALESSIO RIVERA MD 11/30/16 Reported Medications Diphenhydramine Hcl* (Diphenhydramine Hcl*) 25 Mg Capsule, 25 MG PO Q6 Y for ITCHING, CAP 12/28/16 Famotidine* (Famotidine*) 20 Mg Tablet, 20 MG PO BID, #60 TAB 12/28/16 Primary Care Provider Care Physician No Primary Pending Labs Laboratory Tests Test 12/31/16 04:44 Sodium Level 133mmol/L (135-144) Potassium Level 3.7mmol/L (3.5-5.1) Chloride Level 107mmol/L (97-110) Carbon Dioxide Level 22mmol/L (21-31) Anion Gap 8 (8-16) Blood Urea Nitrogen 3mg/dl (7-20) Creatinine 0.60mg/dl (0.44-1.00) Glucose Level 77mg/dl (70-220) Calcium Level 8.4mg/dl (8.4-10.2) Total Bilirubin 0.2mg/dl (0.2-1.3) Direct Bilirubin 0.00mg/dl (0.00-0.20) Indirect Bilirubin 0.2mg/dl (0-1.1) Aspartate Amino Transf (AST/SGOT) 36IU/L (15-46) Alanine Aminotransferase (ALT/SGPT) 103IU/L (13-69) Alkaline Phosphatase 64IU/L (42-121) Total Protein 5.6g/dl (6.1-8.1) Albumin 3.2g/dl (3.3-4.9) Globulin 2.40g/dl (1.3-3.2) Albumin/Globulin Ratio 1.33 ALESSIO RIVERA MD Dec 31, 2016 16:57
== END 2016-12-31 18:25 | disposition home or self-care (01) | DRG 781 ==
LOC: E/R 18:10 → MS2 23:14
PROVIDERS: ADMIT Family Medicine; ATTEND Family Medicine
DX: O21.0 Mild hyperemesis gravidarum (principal); O26.892 Other specified pregnancy related conditions, second trimester; E87.6 Hypokalemia; O21.1 Hyperemesis gravidarum with metabolic disturbance; Z3A.18 18 weeks gestation of pregnancy; Z87.891 Personal history of nicotine dependence
CPT/HCPCS: 36415; 76700; 80053; 81001; 83690; 83735; 84439; 84443; 84702; 85025; 87086; 96365; 96366; 96375; C9113; J0696; J2405; J2765; J7030